=== PATIENT | female | born 2000 | race Hispanic/Latino ===

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

== ENCOUNTER 2018-01-01 15:34 | Emergency (ER) | payer BC, OTHER ==
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
--- NOTE | 2018-01-01 17:13 | CT ---
CT BRAIN 01/01/18 HISTORY: Left leg numbness. Noncontrast enhanced CT images of the brain is obtained on 01/01/18. Comparison made to previous exam from 12/16/17. Noncontrast enhanced CT images of the brain demonstrate a radiopaque BB in the left perizygomatic sof t tissues. The brain is unremarkable. No evidence of intracranial masses, hemorrhages, strokes or contusions see n. The ventricles are of normal size. IMPRESSION: Normal CT brain. POS: [facility]
[2018-01-01] MEDS ORDERED: Ketorolac Tromethamine 30 MG/ML VIAL ONE (17:24)
== END 2018-01-01 17:40 | disposition home or self-care (01) ==
LOC: SCSER 15:34
DX: S80.02XA Contusion of left knee, initial encounter (principal); R20.1 Hypoesthesia of skin; F41.9 Anxiety disorder, unspecified; F31.9 Bipolar disorder, unspecified; F42.9 Obsessive-compulsive disorder, unspecified; F90.9 Attention-deficit hyperactivity disorder, unspecified type; F17.210 Nicotine dependence, cigarettes, uncomplicated; W19.XXXA Unspecified fall, initial encounter
CPT/HCPCS: 70450; 96372; J1885

== ENCOUNTER 2018-01-12 17:09 | Emergency (ER) | payer BC | END 2018-01-12 17:45 | disposition home or self-care (01) | LOC: SCSER 17:09 | DX: S09.90XA Unspecified injury of head, initial encounter (principal); F41.9 Anxiety disorder, unspecified; F31.9 Bipolar disorder, unspecified; F90.9 Attention-deficit hyperactivity disorder, unspecified type; F42.9 Obsessive-compulsive disorder, unspecified; F17.210 Nicotine dependence, cigarettes, uncomplicated; Z79.899 Other long term (current) drug therapy; W22.8XXA Striking against or struck by other objects, initial encounter | CPT/HCPCS: 99283 ==

== ENCOUNTER 2018-05-02 16:50 | Emergency (ER) | payer BC ==
[2018-05-02] MEDS ORDERED: Ketorolac Tromethamine 30 MG/ML VIAL ONE (17:32)
--- NOTE | 2018-05-02 17:33 | CT ---
CT OF THE BRAIN WITHOUT CONTRAST: 05/02/18 COMPARISON: 01/01/18 HISTORY: Headache that came on yesterday in the posterior scalp and behind both eyes. TECHNIQUE: Multiple contiguous axial images were obtained in a CT of the brain without contrast. FINDINGS: The brain is normal in morphology and attenuation without focal lesions or confluent areas of infarct ion. There is no evidence of hydrocephalus, intracranial hemorrhage, or extra-axial fluid collection. The calvarium and overlying soft tissues are unremarkable. The visualized paranasal sinuses and masto id air cells are well aerated. IMPRESSION: No evidence of acute intracranial abnormality. POS: [facility]
== END 2018-05-02 17:38 | disposition home or self-care (01) ==
LOC: SCSER 16:50
DX: R51 Headache (principal); J45.909 Unspecified asthma, uncomplicated; F41.9 Anxiety disorder, unspecified; F31.9 Bipolar disorder, unspecified; F42.9 Obsessive-compulsive disorder, unspecified; F17.210 Nicotine dependence, cigarettes, uncomplicated; Z79.899 Other long term (current) drug therapy
CPT/HCPCS: 70450; 96372; J1885

== ENCOUNTER 2018-06-03 21:46 | Emergency (ER) | payer BC ==
[2018-06-03 23:55] LABS: #Basophils 0.1 thou/uL (0.0-0.2); #Eosinphils 0.3 thou/uL (0.0-0.7); #Lymphocytes 3.1 thou/uL (1.20-3.40); #Monocytes 0.7 thou/uL (0.11-0.59); #Neutrophils 5.2 thou/uL (1.40-6.50); %Basophils 1.3 % (0.0-1.0); %Lymphocytes 33.2 % (28.0-48.0); %Monocytes 7.1 % (0.0-4.0); %Neutrophils 55.3 % (31.0-61.0); Hemoglobin 11.8 g/dL (12.0-16.0); Mean Corpuscular Hemoglobin 26.9 pg (25.0-35.0); Mean Platelet Volume 6.7 fL (7.4-10.4); Platelet Count 251 thou/uL (130-400); RBC Distribution Width 13.7 % (11.5-14.5); White Blood Cell (WBC) Count 9.4 thou/uL (4.8-10.8)
[2018-06-04 00:04] LABS: BHCG - Serum Negative (NEGATIVE); Pregs Control Background? CLEAR/WHITE (CLR/WHITE); Pregs Control Bar Appear? YES (CONTROL BAR)
[2018-06-04 00:11] LABS: ALT (SGPT) 16 U/L (8-55); AST (SGOT) 20 U/L (5-30); Alkaline Phosphatase 100 U/L (40-150); Anion Gap 16 mmol/L (10-20); BUN (Urea Nitrogen) 10 mg/dL (8.4-21.0); Bilirubin, Total 0.1 mg/dL (0.2-1.2); Calc. Creatinine Clearance 0 mL/min (70-130); Calcium 9.7 mg/dL (7.8-10.44); Carbon Dioxide 23 mmol/L (22-29); Chloride 106 mmol/L (98-107); Estimated GFR-MDRD 87; Globulin 3.3 g/dL (2.4-3.5); Glucose 99 mg/dL (70-105); Lipase 21 U/L (8-78); Potassium 4.5 mmol/L (3.5-5.1); Protein, Total 7.3 g/dL (6.0-8.3); Sodium 140 mmol/L (136-145)
[2018-06-04 00:39] LABS: Bilirubin Negative (Negative); Blood, Urine Trace (Negative); Clarity Slightly Cloudy (Clear); Glucose, Urine (Dipstick) Negative (Negative); Leukocyte Negative (Negative); Nitrite Negative (Negative); Protein, Urine (Dipstick) Negative (Neg-Trace); Urobilinogen 0.2 mg/dL (0.2-1.0); pH, Urine 8.5 (5.0-9.0)
[2018-06-04 00:40] LABS: Bacteria/HPF 2+ HPF (None Seen); Hyaline Casts/LPF NONE SEEN LPF (0-3 Hyaline); RBC/HPF 0-3 HPF (0-3); WBC/HPF 0-3 HPF (0-3)
[2018-06-04] MEDS ORDERED: Promethazine HCl 25 MG/ML VIAL ONE (00:46)
--- NOTE | 2018-06-04 08:28 | CT ---
PRELIMINARY REPORT/[facility]/EMERGENTY AFTER-HOURS PROCEDURE CT Abdomen and Pelvis Without Intravenous Contrast CLINICAL HISTORY: 17 years old, female; Pain; Abdominal pain; Localized; Right lower quadrant (rlq); Patient HX: Report nausea/diarrhea were first symlptoms onset 2 days ago. Then dull ache at umbilicus later that day. P t denies vomiting, fever. Pt reports urine frequency but no other urine symptoms. Pain is "sharp". Pt denies vag bleeding or discharge. Pt reports pain then moved to rlq that evening, constant there x 2 days but waxes and wanes. Lying down supine makes it better. Being upright makes it worse TECHNIQUE: Axial computed tomography images of the abdomen and pelvis without intravenous contrast. All CT scans at this facility use at least one of these dose optimization techniques: automated exposure control; mA and/or kV adjustment per patient size (includes targeted exams where dose is matched to clinical indication); or iterative reconstruction. Coronal reformatted images were created and reviewed. COMPARISON: No relevant prior studies available. FINDINGS: Lung bases: No acute findings. No mass. No consolidation. ABDOMEN: Liver: No acute findings. No mass. Gallbladder and bile ducts: The gallbladder is contracted. No biliary dilation. Pancreas: No ductal dilation. No mass. Spleen: No acute findings. No mass. Adrenals: No mass. Kidneys and ureters: Few punctate left upper kidney nonobstructing calculi. Otherwise unremarkable. N o hydronephrosis. Stomach and bowel: Fecal loading. Diverticulosis. No evidence of bowel obstruction. PELVIS: Appendix: Appendix is somewhat prominent measuring up to 5-6 mm in diameter. However there isno peria ppendiceal fat stranding or fluid. No definite evidence of acute appendicitis. Bladder: The bladder is decompressed. No stones. Reproductive: No acute findings. ABDOMEN and PELVIS: Intraperitoneal space: No acute findings. No free air. No significant fluid collection. Bones/joints: No acute fracture. Soft tissues: No acute findings. Vasculature: No acute findings. No abdominal aortic aneurysm. Lymph nodes: No lymphadenopathy. IMPRESSION: No definite acute process. Few punctate nonobstructing left renal calculi. Other findings above. Recommend followup as indicated. Thank you for allowing us to participate in the care of your patient. Dictated and Authenticated by: Bryan Jc MD 06/04/2018 1:17 AM Central Time ([place]) FINAL REPORT CT ABDOMEN AND PELVIS WITHOUT CONTRAST: HISTORY: Right lower quadrant pain. COMPARISON: CT abdomen and pelvis of 11/24/2017 with contrast. FINDINGS: Findings and impression are concordant with the preliminary report. POS: [facility]
== END 2018-06-04 01:53 | disposition home or self-care (01) ==
LOC: SCSER 21:46
DX: N20.0 Calculus of kidney (principal); R11.0 Nausea; J45.909 Unspecified asthma, uncomplicated; F41.9 Anxiety disorder, unspecified; F31.9 Bipolar disorder, unspecified; F90.9 Attention-deficit hyperactivity disorder, unspecified type; F42.9 Obsessive-compulsive disorder, unspecified; F17.210 Nicotine dependence, cigarettes, uncomplicated; Z79.899 Other long term (current) drug therapy
CPT/HCPCS: 74176; 80053; 81003; 81015; 83690; 84703; 85025; 87480; 87491; 87510; 87591; 87660; 96365; 96375; J2270; J2550

== ENCOUNTER 2018-07-14 19:30 | Outpatient (CLI) | payer BC | END 2018-07-14 19:31 | disposition home or self-care (01) | LOC: SLEEPLAB 19:30 | PROVIDERS: ATTEND Pediatrics | DX: G47.33 Obstructive sleep apnea (adult) (pediatric) (principal); R53.83 Other fatigue; R06.83 Snoring; F41.9 Anxiety disorder, unspecified; F32.9 Major depressive disorder, single episode, unspecified; E66.9 Obesity, unspecified; Z68.42 Body mass index [BMI] 45.0-49.9, adult | CPT/HCPCS: 95811 ==

== ENCOUNTER 2018-10-16 01:31 | Emergency (ER) | payer BC ==
[2018-10-16 02:13] LABS: Bilirubin Negative (Negative); Blood, Urine Small (Negative); Clarity Clear (Clear); Glucose, Urine (Dipstick) Negative (Negative); Leukocyte Small (Negative); Nitrite Negative (Negative); Protein, Urine (Dipstick) Negative (Neg-Trace); Urobilinogen 0.2 mg/dL (0.2-1.0)
[2018-10-16 02:15] LABS: Pregnancy Test - Urine (BHCG) Negative (Negative); Pregu Control Background? CLEAR/WHITE (CLR/WHITE); Pregu Control Bar Appear? YES (CONTROL BAR)
[2018-10-16 02:17] LABS: Bacteria/HPF Rare-Few HPF (None Seen); Hyaline Casts/LPF 0-3 HYALINE CAST LPF (0-3 Hyaline); Squamous Epithelial 0-3 HPF (0-3)
== END 2018-10-16 02:21 | disposition home or self-care (01) ==
LOC: SCSER 01:31
DX: N30.00 Acute cystitis without hematuria (principal); J45.909 Unspecified asthma, uncomplicated; E03.9 Hypothyroidism, unspecified; F41.9 Anxiety disorder, unspecified; F32.9 Major depressive disorder, single episode, unspecified; F42.9 Obsessive-compulsive disorder, unspecified; F90.9 Attention-deficit hyperactivity disorder, unspecified type; F17.210 Nicotine dependence, cigarettes, uncomplicated; Z79.899 Other long term (current) drug therapy; Z79.51 Long term (current) use of inhaled steroids
CPT/HCPCS: 81003; 81015; 81025; 87086; 99281

== ENCOUNTER 2018-11-01 23:57 | Emergency (ER) | payer BC ==
[2018-11-02] MEDS ORDERED: Ketorolac Tromethamine 30 MG/ML VIAL ONE (00:05)
[2018-11-02 00:29] LABS: Bilirubin Negative (Negative); Blood, Urine Trace (Negative); Clarity Cloudy (Clear); Glucose, Urine (Dipstick) Negative (Negative); Leukocyte Negative (Negative); Nitrite Negative (Negative); Protein, Urine (Dipstick) Negative (Neg-Trace); Specific Gravity, Urine 1.015 (1.005-1.030); Urobilinogen 0.2 mg/dL (0.2-1.0); pH, Urine 7.5 (5.0-9.0)
[2018-11-02 00:30] LABS: Bacteria/HPF 2+ HPF (None Seen); Crystals/HPF 2+ AMORPH PHOS HPF (Negative); Hyaline Casts/LPF NONE SEEN LPF (0-3 Hyaline); RBC/HPF 0-3 HPF (0-3); Squamous Epithelial 0-3 HPF (0-3); WBC/HPF 0-3 HPF (0-3)
[2018-11-02 00:31] LABS: Pregnancy Test - Urine (BHCG) Negative (Negative); Pregu Control Background? CLEAR/WHITE (CLR/WHITE); Pregu Control Bar Appear? YES (CONTROL BAR); Specific Gravity 1.015 (1.002-1.036)
== END 2018-11-02 00:48 | disposition home or self-care (01) ==
LOC: SCSER 23:57
DX: R30.0 Dysuria (principal); E03.9 Hypothyroidism, unspecified; F42.9 Obsessive-compulsive disorder, unspecified; F90.9 Attention-deficit hyperactivity disorder, unspecified type; F17.210 Nicotine dependence, cigarettes, uncomplicated; F41.9 Anxiety disorder, unspecified; J45.909 Unspecified asthma, uncomplicated; F31.9 Bipolar disorder, unspecified; Z79.899 Other long term (current) drug therapy; Z79.51 Long term (current) use of inhaled steroids
CPT/HCPCS: 81003; 81015; 81025; 87086; 96372; J1885

== ENCOUNTER 2019-02-06 23:20 | Inpatient (IN) | payer BC ==
[2019-02-06] MEDS ORDERED: Ketorolac Tromethamine 30 MG/ML VIAL ONE (23:46)
[2019-02-07] MEDS ORDERED: Acetaminophen 500 MG TAB ONE (00:36)
[2019-02-07 00:41] LABS: BHCG - Serum Negative (NEGATIVE); Pregs Control Background? CLEAR/WHITE (CLR/WHITE); Pregs Control Bar Appear? YES (CONTROL BAR)
[2019-02-07 00:46] LABS: Anion Gap 17 mmol/L (10-20); BUN (Urea Nitrogen) 15 mg/dL (7.0-18.7); CRP (Inflammatory) 2.43 mg/dL (= or < 0.5); Calc. Creatinine Clearance 0 mL/min (70-130); Calcium 9.1 mg/dL (7.8-10.44); Carbon Dioxide 24 mmol/L (22-29); Chloride 101 mmol/L (98-107); Estimated GFR-MDRD 63; Glucose 114 mg/dL (70-105); Potassium 3.9 mmol/L (3.5-5.1); Sodium 138 mmol/L (136-145)
[2019-02-07 00:48] LABS: Eosinophils 2 % (0-10); Hemoglobin 12.9 g/dL (12.0-16.0); Lymphocytes 23 % (28-48); MDiff Complete? YES; Mean Corpuscular HGB CONC 33.8 g/dL (32.0-36.0); Mean Corpuscular Hemoglobin 28.2 pg (25.0-35.0); Mean Corpuscular Volume 83.6 fL (78.0-98.0); Mean Platelet Volume 5.9 fL (7.4-10.4); Monocytes 5 % (0-4); Neutrophil 70 % (31-61); Platelet Count 306 thou/uL (130-400); RBC Distribution Width 14.4 % (11.5-14.5); Red Blood Cell (RBC) Count 4.57 mill/uL (4.00-5.20); White Blood Cell (WBC) Count 10.4 thou/uL (4.8-10.8)
[2019-02-07] MEDS ORDERED: Morphine 4 MG/ML VIAL ONE (01:23)
[2019-02-07] MEDS ORDERED: Ciprofloxacin Lactate/D5W 400 mg/200 ml Premix ONE (01:27)
[2019-02-07] MEDS ORDERED: Ondansetron ODT 4 MG TAB SL PRN (04:17)
[2019-02-07] MEDS ORDERED: Acetaminophen 325 MG TAB PO PRN (04:17)
[2019-02-07] MEDS ORDERED: Sodium Chloride 0.9% 1,000 ML IV SCH ×2 (04:17→04:56)
[2019-02-07] MEDS ORDERED: Ondansetron PF 4 MG/2 ML Vial IVP PRN (04:17)
[2019-02-07] MEDS ORDERED: PROVENTIL INHALER 6.7 G (200 INHALATIONS) INH PRN (04:59)
[2019-02-07] MEDS ORDERED: hydrOXYzine 25 MG TAB PO PRN (04:59)
[2019-02-07] MEDS ORDERED: Morphine 4 MG/ML VIAL SLOW IVP PRN ×2 (05:06→12:38)
[2019-02-07 05:13] VITALS: BMI 53.8
[2019-02-07] MEDS ORDERED: Acetic Acid/Hydrocor 2-1% Otic 10 ML BOT L EAR SCH (06:00)
[2019-02-07] MEDS ORDERED: Cefepime 2 GM in Sodium Chloride 0.9% 100 ML IVPB SCH (06:00)
[2019-02-07] MEDS ORDERED: Vancomycin HCl 1.75 GM in Sodium Chloride 0.9% 500 ML IVPB SCH (06:00)
[2019-02-07] MEDS: NEOMYCIN-POLYMYXIN-HC EAR SUSP 200 DROP/10 ML BOT L EAR SCH ×2 (06:24→12:14)
--- NOTE | 2019-02-07 07:31 | HP ---
PRIMARY CARE DOCTOR: The primary care doctor for this patient was not reported. CODE STATUS: Full code. TIME OF EVALUATION: 5:06 a.m. CHIEF COMPLAINT: Left ear pain. HISTORY OF PRESENT ILLNESS: The is a 18-year-old female patient, past medical history of hypertension, anemia, obesity, and hypothyroidism, came to the hospital after having severe left ear pain radiating to the jaw that started around 11:00 a.m. with no clear triggers, no alleviating factors. The only problem patient recently was having an upper respiratory infection and she also reported associated left-sided ear drainage. She reported multiple recurrent ear infections and this was associated with severe pain. She also reported low-grade subjective fever. Symptoms were severe. REVIEW OF SYSTEMS: CONSTITUTIONAL: Patient has subjective fever. No chills or generalized weakness. RESPIRATORY: No cough, sputum production, or shortness of breath. CARDIOVASCULAR: No chest pain or palpitation. GASTROINTESTINAL: No nausea, vomiting, diarrhea, or abdominal pain. UNDERPRESSER HAND: No dizziness, headache, or feeling lightheaded. HEENT: Patient has left ear pain as described in HPI. GENITOURINARY: No burning on urination. EXTREMITIES: No leg swelling. All other systems were reviewed and negative, except for the findings mentioned above. PAST MEDICAL HISTORY: Positive for asthma, hypothyroidism, and chronic tachycardia. SURGICAL HISTORY: Left knee surgery x3 and tonsillectomy and adenoidectomy. PSYCHIATRIC HISTORY: Patient has a history of anxiety, bipolar disorder, depression, OCD, and ADHD. SOCIAL HISTORY: Patient has a history of no alcohol and no drugs. Patient smokes on a daily basis. FAMILY HISTORY: Includes hypertension. KNOWN ALLERGIES: Codeine and iodine. REPORTED MEDICATIONS: 1. Paroxetine. 2. Latuda. 3. Bupropion. 4. Hydroxyzine. 5. Lansoprazole. 6. Oxtellar. 7. Trazodone. 8. ProAir. PHYSICAL EXAMINATION: VITAL SIGNS: On presentation, blood pressure 123/69 with heart rate of 127, respiratory rate was 20, temperature 99, pain was 8/10, and oxygen saturation was 97% on room air. GENERAL APPEARANCE: The patient is alert, oriented, not in acute distress. HEENT: Eyes, normal conjunctivae. Moist oral mucosa. Patient has left ear that is with narrow ear canal compared with the right one and very painful to light touch. RESPIRATORY: Bilateral air entry. No rales. No wheezes. Symmetric expansion. CARDIOVASCULAR: Normal rate, regular rhythm. No murmurs. No gallop. No edema. ABDOMEN: Soft. Normal bowel sounds. MUSCULOSKELETAL: Baseline range of motion and strength. SKIN: Warm, intact. No pallor. No rash. No redness. Capillary refill seems to be intact. NEUROLOGIC: No evidence of any new focal weakness. Cranial nerves seem to be intact. PSYCH: Patient is in good mood. No anxiety. Optimal judgment. DIAGNOSTIC DATA: CT neck with contrast was done. The patient has mild acute left mastoiditis without air cells, coalescence is possible, correlate clinically. LABORATORY DATA: Labs were reviewed. Patient has white count of 10.0, hemoglobin 12.9, MCV 83.6, platelet count 306, and neutrophils 70. ESR 34. Chemistry; 138, potassium 3.9, chloride 101, carbon dioxide 24, anion gap 17, BUN 15, creatinine 1.10, GFR 63, glucose 114, and lactic acid 2. C-reactive protein 2.43. ASSESSMENT AND PLAN: The patient presented to the hospital with the following medical problems: 1. Left-sided mastoiditis seen on the CT. Patient has been started on broad-spectrum antibiotics. We will continue for now. Cultures, pain management. 2. Hyperglycemia. The patient has no diagnosis of diabetes, but she does have metabolic syndrome, we will monitor, we will treat accordingly. 3. Deep venous thrombosis prophylaxis. Job ID: [id number]
[2019-02-07] MEDS: Bupropion 150 MG SR TAB PO SCH (07:53)
[2019-02-07] MEDS: PARoxetine 20 MG TAB PO SCH (07:53)
[2019-02-07] MEDS: Morphine 2 MG/ML SYRINGE SLOW IVP PRN ×3 (07:54→12:03)
[2019-02-07] MEDS: Enoxaparin Sodium 40 MG/0.4 ML SYRINGE SC SCH (07:54)
--- NOTE | 2019-02-07 07:56 | CT ---
PRELIMINARY REPORT/[facility]/AFTER HOURS PROCEDURE EXAM: CT Neck With Contrast EXAM DATE/TIME: 02/07/2019 12:33 AM CLINICAL HISTORY: 18 years old, female; Other: Left ear pain; Patient HX: Left ear drainage and pain, radiates into jaw . Eval for mastoiditis/abscess TECHNIQUE: Imaging protocol: Axial computed tomography images of the neck with intravenous contrast. Coronal and sagittal reformatted images were created and reviewed. Radiation optimization: All CT scans at this facility use at least one of these dose optimization techniques: automated exposure control; mA and/or kV adjustment per patient size (includes targeted exams where dose is matched to clinical indication); or iterative reconstruction. Contrast material: [id number]; Contrast volume: 100 ml; Contrast route: IV; COMPARISON: No relevant prior studies available. FINDINGS: Nasopharynx: Normal. Oropharynx: Normal. No significant tonsillar enlargement. Hypopharynx: Normal. Larynx: Normal. Normal epiglottis. Retropharyngeal space: Normal. Submandibular/Parotid glands: Normal. Glands are normal in size. Thyroid: Normal. No enlarged or calcified nodules. Lymph nodes: Normal. No lymphadenopathy. Trachea: Visualized trachea is unremarkable. Lungs: Normal as visualized. Vasculature: No acute findings. Mastoid air cells: There is trace fluid opacification within the bilateral inferior mastoid air cells , LEFT greater than RIGHT. No coalescence. Bones/joints: Normal. No acute fracture. Soft tissues: There is a metallic BB within the LEFT cheek. No periauricular inflammatory stranding. IMPRESSION: Mild acute LEFT mastoiditis without air cell coalescence is possible. Correlate clinically. Thank you for allowing us to participate in the care of your patient. Dictated and Authenticated by: Carroll Bailey MD 02/07/2019 2:10 AM Central Time ([place]) FINAL REPORT POST CONTRAST SOFT TISSUE NECK CT: HISTORY: Evaluate for mastoiditis or abscess. Left ear pain, radiating to the jaw. Drainage. FINDINGS: Visualized brain parenchyma is unremarkable. Bilateral ocular lenses are appropriately located. Both globes are intact. Retrobulbar fat is prese rved. Symmetric attenuation of the optic nerves and ocular rectus muscles. Mucosal prominence of the nasopharynx may be due to lymphoid hyperplasia. Left and right tonsillar p illars are unremarkable. No significant hypertrophy at the expected region of the lingual tonsils. Limited evaluation of the oral cavity due to a small amount of artifact. No masses. Midline fatty r aphe of the tongue is preserved. Epiglottis has normal caliber. Preepiglottic fat is preserved. Symmetric attenuation of the sternocleidomastoid muscles. Fatty changes of the left and right parotid gland. Symmetric attenuation. Symmetric attenuation of the submandibular glands. Unremarkable thyroid gland. Enlarged left level II lymph node, measuring 1.6 x 1.1 cm. Additional nonenlarged lymph nodes are no albino. The great vessels of the neck are patent. Adequate aeration of the paranasal sinuses with minimal disease in the left maxillary sinus. Symmetr ic and adequate aeration of bilateral mastoid air cells. Minimal opacification of the inferior aspect of the left and right mastoid air cells, essentially symmetric. There does appear to be mild asymmetric thickening and enhancement involving the external auditory canal on the left. Correlate for otitis externa. Cervical spine vertebral body height is maintained. No fracture. No significant central canal steno sis or neural foraminal narrowing. Upper mediastinum and lung apices are unremarkable. There is a metallic foreign body in the left facial soft tissues, near the level of the zygomatic arc h, measuring 0.8 cm. IMPRESSION: 1. No evidence of a soft tissue abscess. 2. No evidence of lymphadenopathy. 3. No evidence of sialoadenitis or inflammation involving either parotid/submandibular gland. 4. Symmetric aeration of the mastoid air cells with minimal opacification of both inferior mastoid a ir cells. Correlate clinically for acute infection of the mastoid air cells. 5. Mild asymmetric enhancement and thickening involving the left external auditory canal. Correlate for otitis externa. This report is essentially in agreement with the preliminary report by [facility] Code QA CODE T
[2019-02-07] MEDS ORDERED: Guanfacine Hcl [Guanfacine Hcl Er] 1 MG PO SCH (09:00)
[2019-02-07] MEDS ORDERED: Lisdexamfetamine Dimesylate [Vyvanse] 60 MG PO SCH (09:00)
[2019-02-07] MEDS ORDERED: NORGESTIMATE ETHINYL ESTRADIOL PO SCH (09:00)
[2019-02-07] MEDS: Ketorolac Tromethamine 30 MG/ML VIAL IVP PRN (09:05)
[2019-02-07] MEDS ORDERED: cloNIDine 0.1 MG TAB PO PRN (09:28)
[2019-02-07] MEDS ORDERED: Iopamidol 300 61% 100 ML VIAL FS ONE (10:15)
[2019-02-07] MEDS ORDERED: Ciprofloxacin HCL/Dexameth Otic Drops 7.5 ml Bottle EA EAR SCH (12:00)
[2019-02-07] MEDS: Morphine 4 MG/ML VIAL SLOW IVP PRN ×2 (13:32→17:21)
[2019-02-07] MEDS: Acetaminophen 325 MG TAB PO SCH ×2 (14:38→20:18)
[2019-02-07] MEDS ORDERED: Gabapentin 100 MG CAP PO SCH (15:00)
[2019-02-07] MEDS: traMADol HCl 50 MG TAB PO PRN (15:45)
[2019-02-07] MEDS ORDERED: Acyclovir 400 mg Tablet PO SCH (16:45)
[2019-02-07] MEDS: Gabapentin 300 MG CAP PO SCH (20:18)
[2019-02-07] MEDS: Carvedilol 25 MG TAB PO SCH (20:18)
[2019-02-07] MEDS: Acyclovir 400 mg Tablet PO SCH (20:18)
[2019-02-07] MEDS: traZODone HCl 50 MG TAB PO SCH (20:18)
[2019-02-07] MEDS: Ciprofloxacin HCL/Dexameth Otic Drops 7.5 ml Bottle EA EAR SCH (20:18)
[2019-02-07] MEDS: HYDROcodone/Acetaminophen 5/325 mg Tablet PO PRN (20:21)
[2019-02-07] MEDS ORDERED: OXCARBAZEPINE 1800 MG PO SCH (21:00)
--- NOTE | 2019-02-07 22:43 | CON ---
DATE OF CONSULTATION: 02/07/2019 SUBJECTIVE: The patient is admitted to the hospital for severe left-sided ear pain. CT scan was performed and there were concerns for a possible left-sided mastoiditis. The patient has been receiving IV antibiotics and IV pain medication since being admitted with very minimal relief. ENT was called for consult. OBJECTIVE: The patient is well developed, well nourished. Her vital signs are stable. Currently, she states that her left ear has been anywhere from [id number] pain. She has a heating pad that she is using currently. PHYSICAL EXAMINATION: Shows no nasal abnormalities. No evidence of tooth erosion that could be contributing to some of the ear pain. Throat is normal. Right ear exam, there is no pain with mobilization, no pain with tracheal palpation. Ear canal is normal. Tympanic membrane was visualized. There is no evidence of redness or swelling. Left ear examination revealed tenderness throughout with any kind of mobilization including tragal palpation. Examination of the ear canal revealed some mild narrowing and redness, however, tympanic membrane was completely normal. Mild tenderness to palpation of the mastoid itself. CT scan that was taken was reviewed by Dr. Sanderson prior to examination by myself at the hospital itself. His interpretation was there is a minimal inferior mastoid proliferation at the left side that felt it was more of an incidental finding than a true mastoiditis. ASSESSMENT: 1. Otalgia. 2. Possible otitis externa. 3. Possible temporomandibular joint dysfunction with inflammation. PLAN: 1. Change current ear drop from Cortisporin to Ciprodex to use 4 drops b.i.d. 2. Continue with IV therapy as indicated by Medicine and current pain regimen. 3. May follow up on an outpatient basis with Ear, Nose, and Throat if pain continues. Job ID: [id number]
[2019-02-08] MEDS: HYDROcodone/Acetaminophen 5/325 mg Tablet PO PRN ×3 (03:09→16:54)
[2019-02-08 04:12] LABS: #Eosinphils 0.5 thou/uL (0.0-0.7); #Lymphocytes 1.8 thou/uL (1.20-3.40); #Neutrophils 7.2 thou/uL (1.40-6.50); %Basophils 0.3 % (0.0-1.0); %Eosinophils 4.7 % (0.0-10.0); %Lymphocytes 16.9 % (28.0-48.0); %Monocytes 9.4 % (0.0-4.0); %Neutrophils 68.7 % (31.0-61.0); Hemoglobin 12.2 g/dL (12.0-16.0); Mean Corpuscular HGB CONC 32.9 g/dL (32.0-36.0); Mean Corpuscular Hemoglobin 27.8 pg (25.0-35.0); Mean Corpuscular Volume 84.5 fL (78.0-98.0); Mean Platelet Volume 6.6 fL (7.4-10.4); Platelet Count 256 thou/uL (130-400); RBC Distribution Width 13.7 % (11.5-14.5); Red Blood Cell (RBC) Count 4.38 mill/uL (4.00-5.20); White Blood Cell (WBC) Count 10.5 thou/uL (4.8-10.8)
[2019-02-08 04:27] LABS: Anion Gap 13 mmol/L (10-20); BUN (Urea Nitrogen) 8 mg/dL (7.0-18.7); Calc. Creatinine Clearance 268 mL/min (70-130); Calcium 9.5 mg/dL (7.8-10.44); Carbon Dioxide 23 mmol/L (22-29); Chloride 103 mmol/L (98-107); Estimated GFR-MDRD Greater than 90; Glucose 106 mg/dL (70-105); Sodium 135 mmol/L (136-145)
[2019-02-08] MEDS: Morphine 4 MG/ML VIAL SLOW IVP PRN (06:27)
[2019-02-08] MEDS: Ciprofloxacin HCL/Dexameth Otic Drops 7.5 ml Bottle EA EAR SCH ×2 (09:21→20:44)
[2019-02-08] MEDS: Enoxaparin Sodium 40 MG/0.4 ML SYRINGE SC SCH (09:21)
[2019-02-08] MEDS: Acyclovir 400 mg Tablet PO SCH ×2 (09:22→14:30)
[2019-02-08] MEDS: PARoxetine 20 MG TAB PO SCH (09:22)
[2019-02-08] MEDS: Acetaminophen 325 MG TAB PO SCH ×3 (09:22→20:42)
[2019-02-08] MEDS: Bupropion 150 MG SR TAB PO SCH (09:22)
[2019-02-08] MEDS: Carvedilol 25 MG TAB PO SCH ×2 (09:23→20:42)
[2019-02-08] MEDS: Saccharomyces boulardii 250 MG CAP PO SCH (09:23)
[2019-02-08] MEDS: Gabapentin 300 MG CAP PO SCH ×3 (09:23→20:41)
[2019-02-08] MEDS: Ketorolac Tromethamine 30 MG/ML VIAL IVP PRN ×2 (09:34→16:55)
[2019-02-08] MEDS ORDERED: Polyethylene Glycol 3350 17 GM Packet PO PRN (11:28)
[2019-02-08] MEDS: traMADol HCl 50 MG TAB PO PRN ×2 (12:34→20:42)
[2019-02-08] MEDS ORDERED: Sodium Chloride 0.9% 1,000 ML IV SCH (17:45)
--- NOTE | 2019-02-08 18:38 | CON ---
DATE OF CONSULTATION: 02/08/2019 REASON FOR CONSULTATION: Pain left ear. HISTORY OF PRESENT ILLNESS: A 18-year-old, history of obesity, asthma, who developed fairly sudden onset of pain in the left external ear canal with radiation in the pre-auricular region. Apparently had some upper respiratory symptoms. She also used a Q-tip, because she felt as if there was ear drainage on the left side. She was seen by ENT here and they prescribed topical ear drops. The pain is better now, but she is under analgesia. No headaches. No visual symptoms, sore throat, odynophagia, or dysphagia. No cough, sputum production, or chest pain. No abdominal pain or diarrhea. No genitourinary symptoms. No neurological symptoms. MEDICAL HISTORY: Asthma, hypothyroidism, and ear infections. PAST SURGICAL HISTORY: Knee arthroscopy, tonsillectomy. SOCIAL HISTORY: Positive smoking. No drug use. FAMILY HISTORY: Hypertension. ALLERGIES: CODEINE, IODINE. MEDICATIONS: Current medications; 1. [place]. 2. Proventil. 3. Wellbutrin. 4. Coreg. 5. Ciprodex Otic drops. 6. Catapres. 7. Lovenox. 8. Zofran. 9. Guaifenesin. 10. P.r.n. medications. 11. Trazodone. PHYSICAL EXAMINATION: VITAL SIGNS: Have been normal. SKIN: Normal. No lymphadenopathy. HEENT: Left ear canal is swollen and mildly erythematous, but without any evidence of other inflammatory changes. Marked tenderness on insertion of the speculum of the otoscope. The right side is normal and widely patent. There is mild tenderness in the left mastoid. Ocular movements conjugate. Oral cavity normal. NECK: Supple. LUNGS: Symmetric clear breath sounds. HEART: S1 and S2 regular rate. ABDOMEN: Soft. Not distended or tender. MUSCULOSKELETAL: No joint inflammatory activity. Moves extremities equally. Cognitive function appears to be intact. LABORATORY DATA: With normal white cell count, hemoglobin and platelets. Differential with 70% neutrophils. Sodium 138, creatinine 1.10, glucose 114, CRP 2.43. The patient had a soft tissue neck CT with aeration of mastoid air cells with minimal opacification on the left side and there is enhancement and thickening of the left external auditory canal. ASSESSMENT: 1. Ear pain, external ear canal. 2. Swelling of the ear canal with mild erythema and x-ray changes. DISCUSSION: The most likely scenario is external otitis since she does not have diabetes in view of the clinical findings, malignant external otitis is less likely. Continue otic drops. Discontinue acyclovir. Herpes zoster in the distribution of the geniculate ganglion is also not likely. Job ID: [id number]
[2019-02-08] MEDS: Senokot S 8.6-50 MG TAB PO SCH (20:41)
[2019-02-08] MEDS: traZODone HCl 50 MG TAB PO SCH (20:44)
--- NOTE | 2019-02-08 21:16 | PDOC.PN ---
- Subjective Encounter Start Date: 02/08/19 Encounter Start Time: 08:00 Patient seen and examined fot Otalgia. Pain somewhat improving with Gabapentin. No fever/chills/ No ear discharge. No new complaints. No overnight events - Objective Resuscitation Status - Order Detail: 02/07/19 04:57 Resuscitation Status Routine Resuscitation Status: FULL: Full Resuscitation MAR Reviewed: Yes Vital Signs & Weight: Vital Signs (12 hours) Temp Pulse Resp BP Pulse Ox 02/08/19 19:50 97.4 F L 89 12 132/83 98 02/08/19 15:50 97.6 F 82 18 144/92 H 97 02/08/19 12:00 98.2 F 79 18 113/70 98 Weight Weight 313 lb I&O: 02/07/19 02/08/19 02/09/19 06:59 06:59 06:59 Intake Total 240 2460 700 Balance 240 2460 700 Result Diagrams: 02/08/19 04:01 02/08/19 04:01 Radiology Reviewed by me: Yes (CT - reviewed - no acute findings) Phys Exam - Physical Examination Constitutional: NAD HEENT: moist MMs, sclera anicteric, TM's clear, oral pharynx no lesions Respiratory: no wheezing, no rales, no rhonchi, clear to auscultation bilateral Cardiovascular: RRR, no rub no heaves/pulsations Gastrointestinal: soft, non-tender, no distention, positive bowel sounds Musculoskeletal: no edema, pulses present Neurological: non-focal, normal sensation, moves all 4 limbs Psychiatric: normal affect, A&O x 3 Skin: no rash Dx/Plan - Plan IMPRESSION: Otitis externa Otalgia due to #1 ?Herpes zoster vs HSV infection Morbid obesity BMI 53.7 HTN PLAN: Cont Acyclovir Cont other meds as below Increase Gabapentin to 300 mg TID Cont PRN pain meds Minimize IV Morphine Await ID input Review of Systems - Review of Systems Respiratory: negative: Cough, Dry, Shortness of Breath, Hemoptysis, SOB with Excertion, Pleuritic Pain, Sputum, Wheezing Cardiovascular: negative: chest pain, palpitations, orthopnea, paroxysmal nocturnal dyspnea, edema, light headedness, other - Medications/Allergies Allergies/Adverse Reactions: Allergies Allergy/AdvReac Type Severity Reaction Status Date / Time codeine Allergy Verified 02/07/19 05:02 Medications: Current Medications Acetaminophen (Tylenol) 650 mg PO TID [facility] Last Admin: 02/08/19 20:42 Dose: 650 mg Hydrocodone Bitart/Acetaminophen ([place] 5/325) 1 tab PO Q6H PRN PRN Reason: Moderate Pain (4-6) Last Admin: 02/08/19 16:54 Dose: 1 tab Albuterol Sulfate (Proventil Hfa) 2 puff INH Q4HR PRN PRN Reason: SOB &/or Wheezing Bupropion HCl (Wellbutrin Sr) 150 mg PO DAILY [facility] Last Admin: 02/08/19 09:22 Dose: 150 mg Carvedilol (Coreg) 25 mg PO BID [facility] Last Admin: 02/08/19 20:42 Dose: 25 mg Ciprofloxacin/Dexamethasone (Ciprodex 0.3-0.1% Otic Drops) 4 drop EA EAR BID [facility] Last Admin: 02/08/19 20:44 Dose: 4 drop Clonidine (Catapres) 0.1 mg PO Q4H PRN PRN Reason: SBP Greater Than 180 Enoxaparin Sodium (Lovenox) 40 mg SC 0900 [facility] Last Admin: 02/08/19 09:21 Dose: 40 mg Gabapentin (Neurontin) 300 mg PO TID [facility] Last Admin: 02/08/19 20:41 Dose: 300 mg Hydroxyzine HCl (Atarax) 25 mg PO TID PRN PRN Reason: Anxiety Ketorolac Tromethamine (Toradol) 15 mg IVP TID PRN PRN Reason: Pain Stop: 02/12/19 04:19 Last Admin: 02/08/19 16:55 Dose: 15 mg Ondansetron HCl (Zofran) 4 mg IVP Q6H PRN PRN Reason: Nausea/Vomiting Stop: 02/11/19 14:40 Ondansetron HCl (Zofran Odt) 4 mg SL Q6H PRN PRN Reason: Nausea/Vomiting Stop: 02/10/19 14:40 Pantoprazole Sodium (Protonix) 40 mg PO HS [facility] Last Admin: 02/08/19 20:42 Dose: 40 mg Paroxetine HCl (Paxil) 40 mg PO DAILY [facility] Last Admin: 02/08/19 09:22 Dose: 40 mg Guanfacine Hcl [ Guanfacine Hcl Er] 1 Mg 1 each PO DAILY [facility] Lisdexamfetamine Dimesylate [Vyvanse] 60 Mg 1 each PO QAM [facility] Lurasidone Hcl 60 Mg (Tablet) 60 each PO QPM-WM [facility] Non-Formulary Item 1 Each (Norgestimate -Ethinyl Estradiol [ Femynor 28 Tablet ] 1 Ea 1 Each 1 each PO DAILY [facility] Oxcarbazepine [ Oxtellar Xr] 1,800 Mg 1,800 each PO HS [facility] Polyethylene Glycol (Miralax) 17 gm PO DAILY PRN PRN Reason: Constipation Saccharomyces Boulardii (Florastor) 250 mg PO DAILY [facility] Last Admin: 02/08/19 09:23 Dose: 250 mg Senna/Docusate Sodium (Senokot S) 2 tab PO BID [facility] Last Admin: 02/08/19 20:41 Dose: 2 tab Sodium Chloride (Flush - Normal Saline) 10 ml IVF PRN PRN PRN Reason: Saline Flush Stop: 02/12/19 14:40 Last Admin: 02/08/19 14:34 Dose: 10 ml Tramadol HCl (Ultram) 50 mg PO Q4H PRN PRN Reason: Moderate Pain (4-6) Last Admin: 02/08/19 20:42 Dose: 50 mg Trazodone HCl (Desyrel) 50 mg PO HS [facility] Last Admin: 02/08/19 20:44 Dose: 50 mg
[2019-02-09] MEDS: HYDROcodone/Acetaminophen 5/325 mg Tablet PO PRN ×2 (03:12→08:25)
[2019-02-09] MEDS: Ciprofloxacin HCL/Dexameth Otic Drops 7.5 ml Bottle EA EAR SCH ×2 (08:16→21:12)
[2019-02-09] MEDS: Enoxaparin Sodium 40 MG/0.4 ML SYRINGE SC SCH (08:16)
[2019-02-09] MEDS: Saccharomyces boulardii 250 MG CAP PO SCH (08:17)
[2019-02-09] MEDS: Senokot S 8.6-50 MG TAB PO SCH ×2 (08:17→21:12)
[2019-02-09] MEDS: PARoxetine 20 MG TAB PO SCH (08:17)
[2019-02-09] MEDS: Acetaminophen 325 MG TAB PO SCH (08:18)
[2019-02-09] MEDS: Carvedilol 25 MG TAB PO SCH ×2 (08:18→21:13)
[2019-02-09] MEDS: Bupropion 150 MG SR TAB PO SCH (08:18)
[2019-02-09] MEDS: Gabapentin 300 MG CAP PO SCH ×4 (08:20→21:13)
[2019-02-09] MEDS ORDERED: Acetaminophen 325 MG TAB PO PRN (10:47)
[2019-02-09] MEDS: traMADol HCl 50 MG TAB PO PRN (15:06)
[2019-02-09] MEDS: Piperacillin/Tazobactam 3.375 GM in Sodium Chloride 0.9% 100 ML IVPB SCH ×2 (15:07→21:12)
[2019-02-09] MEDS: Ketorolac Tromethamine 30 MG/ML VIAL IVP PRN (15:15)
--- NOTE | 2019-02-09 16:13 | PRG ---
DATE OF SERVICE: 02/09/2019 SUBJECTIVE: Still marked pain without improvement in left ear and preauricular areas. No sore throat. No cough or sputum production. No chest pain. No abdominal pain or diarrhea. Bowel sounds are normal. Ocular movements conjugate. Less swelling of the left external ear canal. I did not see any erythema. The preauricular tissues are markedly tender including the mastoid and retroauricular or preauricular regions. OBJECTIVE: LUNGS: Clear. HEART: S1-S2. Regular rate. ABDOMEN: Soft. Not distended or tender. LABORATORY DATA: White cell count 10.5. ASSESSMENT AND DISCUSSION: Ear pain with likely external otitis. In view of lack of improvement just with topical treatment, we will add systemic antimicrobial therapy and observe until tomorrow. Hopefully, discharge on Ciprodex once there is some improvement. Job ID: [id number]
[2019-02-09] MEDS: traZODone HCl 50 MG TAB PO SCH (21:13)
--- NOTE | 2019-02-09 23:32 | PDOC.PN ---
- Subjective Encounter Start Date: 02/09/19 Encounter Start Time: 09:00 Patient seen and examined for otitis externa. Continues to have significant left ear pain - sharp, shooting. No new ear discharge. No fever. No overnight events - Objective Resuscitation Status - Order Detail: 02/07/19 04:57 Resuscitation Status Routine Resuscitation Status: FULL: Full Resuscitation MAR Reviewed: Yes Vital Signs & Weight: Vital Signs (12 hours) Temp Pulse Resp BP Pulse Ox 02/09/19 20:47 98.1 F 84 16 134/92 H 99 02/09/19 16:40 98 02/09/19 12:46 98.1 F 84 18 127/81 98 Weight Weight 313 lb I&O: 02/08/19 02/09/19 02/10/19 06:59 06:59 06:59 Intake Total 2460 1960 2980 Balance 2460 1960 2980 Result Diagrams: 02/08/19 04:01 02/08/19 04:01 Phys Exam - Physical Examination Constitutional: NAD HEENT: TM's clear some dried secretions in left ear canal. No erythema Respiratory: no wheezing, no rhonchi Cardiovascular: RRR, no rub Gastrointestinal: soft Musculoskeletal: no edema Neurological: moves all 4 limbs Dx/Plan - Plan DVT proph w/lovenox, DVT proph w/SCDs IMPRESSION: Otitis externa ? Malignant Otalgia due to #1 ?Herpes zoster vs HSV infection - Acyclovir dced by ID Morbid obesity BMI 53.7 HTN PLAN: Start Zosyn per Dr Bashir Increase Gabapentin to 300 mg QID Cont other meds as below Cont PRN pain meds Minimize narcotics Review of Systems - Review of Systems Respiratory: negative: Cough, Dry, Shortness of Breath, Hemoptysis, SOB with Excertion, Pleuritic Pain, Sputum, Wheezing Cardiovascular: negative: chest pain, palpitations, orthopnea, paroxysmal nocturnal dyspnea, edema, light headedness, other Gastrointestinal: negative: Nausea, Vomiting, Abdominal Pain, Diarrhea, Constipation, Melena, Hematochezia, Other - Medications/Allergies Allergies/Adverse Reactions: Allergies Allergy/AdvReac Type Severity Reaction Status Date / Time codeine Allergy Verified 02/07/19 05:02 Medications: Current Medications Acetaminophen (Tylenol) 650 mg PO Q4H PRN PRN Reason: Headache/Fever or Mild Pain Hydrocodone Bitart/Acetaminophen ([place] 5/325) 1 tab PO Q6H PRN PRN Reason: Moderate Pain (4-6) Last Admin: 02/09/19 08:25 Dose: 1 tab Albuterol Sulfate (Proventil Hfa) 2 puff INH Q4HR PRN PRN Reason: SOB &/or Wheezing Bupropion HCl (Wellbutrin Sr) 150 mg PO DAILY [facility] Last Admin: 02/09/19 08:18 Dose: 150 mg Carvedilol (Coreg) 25 mg PO BID [facility] Last Admin: 02/09/19 21:13 Dose: 25 mg Ciprofloxacin/Dexamethasone (Ciprodex 0.3-0.1% Otic Drops) 4 drop EA EAR BID [facility] Last Admin: 02/09/19 21:12 Dose: 4 drop Clonidine (Catapres) 0.1 mg PO Q4H PRN PRN Reason: SBP Greater Than 180 Enoxaparin Sodium (Lovenox) 40 mg SC 0900 [facility] Last Admin: 02/09/19 08:16 Dose: 40 mg Gabapentin (Neurontin) 300 mg PO QID [facility] Last Admin: 02/09/19 21:13 Dose: 300 mg Hydroxyzine HCl (Atarax) 25 mg PO TID PRN PRN Reason: Anxiety Piperacillin Sod/Tazobactam (Sod 3.375 gm/ Sodium Chloride) 100 mls @ 200 mls/ hr IVPB 0300,0900,1500,2100 [facility] Last Admin: 02/09/19 21:12 Dose: 100 mls Ketorolac Tromethamine (Toradol) 15 mg IVP TID PRN PRN Reason: Pain Stop: 02/12/19 04:19 Last Admin: 02/09/19 15:15 Dose: 15 mg Ondansetron HCl (Zofran) 4 mg IVP Q6H PRN PRN Reason: Nausea/Vomiting Stop: 02/11/19 14:40 Ondansetron HCl (Zofran Odt) 4 mg SL Q6H PRN PRN Reason: Nausea/Vomiting Stop: 02/10/19 14:40 Pantoprazole Sodium (Protonix) 40 mg PO HS [facility] Last Admin: 02/09/19 21:13 Dose: 40 mg Paroxetine HCl (Paxil) 40 mg PO DAILY [facility] Last Admin: 02/09/19 08:17 Dose: 40 mg Guanfacine Hcl [ Guanfacine Hcl Er] 1 Mg 1 each PO DAILY [facility] Lisdexamfetamine Dimesylate [Vyvanse] 60 Mg 1 each PO QAM [facility] Lurasidone Hcl 60 Mg (Tablet) 60 each PO QPM-WM [facility] Non-Formulary Item 1 Each (Norgestimate -Ethinyl Estradiol [ Femynor 28 Tablet ] 1 Ea 1 Each 1 each PO DAILY [facility] Oxcarbazepine [ Oxtellar Xr] 1,800 Mg 1,800 each PO HS [facility] Polyethylene Glycol (Miralax) 17 gm PO DAILY PRN PRN Reason: Constipation Polyethylene Glycol (Miralax) 17 gm PO DAILY [facility] Saccharomyces Boulardii (Florastor) 250 mg PO DAILY [facility] Last Admin: 02/09/19 08:17 Dose: 250 mg Senna/Docusate Sodium (Senokot S) 2 tab PO BID [facility] Last Admin: 02/09/19 21:12 Dose: 2 tab Sodium Chloride (Flush - Normal Saline) 10 ml IVF PRN PRN PRN Reason: Saline Flush Stop: 02/12/19 14:40 Last Admin: 02/09/19 08:18 Dose: 10 ml Tramadol HCl (Ultram) 50 mg PO Q4H PRN PRN Reason: Moderate Pain (4-6) Last Admin: 02/09/19 15:06 Dose: 50 mg Trazodone HCl (Desyrel) 50 mg PO HS [facility] Last Admin: 02/09/19 21:13 Dose: 50 mg
[2019-02-10] MEDS: Piperacillin/Tazobactam 3.375 GM in Sodium Chloride 0.9% 100 ML IVPB SCH ×4 (03:35→20:15)
[2019-02-10] MEDS: Ciprofloxacin HCL/Dexameth Otic Drops 7.5 ml Bottle EA EAR SCH ×2 (08:15→20:19)
[2019-02-10] MEDS: Enoxaparin Sodium 40 MG/0.4 ML SYRINGE SC SCH (08:15)
[2019-02-10] MEDS: Gabapentin 300 MG CAP PO SCH ×4 (08:16→20:22)
[2019-02-10] MEDS: Senokot S 8.6-50 MG TAB PO SCH ×2 (08:16→20:23)
[2019-02-10] MEDS: PARoxetine 20 MG TAB PO SCH (08:16)
[2019-02-10] MEDS: Bupropion 150 MG SR TAB PO SCH (08:16)
[2019-02-10] MEDS: Carvedilol 25 MG TAB PO SCH ×2 (08:16→20:22)
[2019-02-10] MEDS: Saccharomyces boulardii 250 MG CAP PO SCH (08:16)
[2019-02-10] MEDS: Polyethylene Glycol 3350 17 GM Packet PO SCH (08:17)
[2019-02-10] MEDS: Ketorolac Tromethamine 30 MG/ML VIAL IVP PRN (14:09)
--- NOTE | 2019-02-10 16:02 | PDOC.PN ---
- Subjective Encounter Start Date: 02/10/19 Encounter Start Time: 12:30 Patient seen and examined for Otitis externa. Still has intermittent left ear pain. Was evaluated by ENT yesterday. No fever/chills or new left ear discharge. No new complaints. No overnight events - Objective Resuscitation Status - Order Detail: 02/07/19 04:57 Resuscitation Status Routine Resuscitation Status: FULL: Full Resuscitation MAR Reviewed: Yes Vital Signs & Weight: Vital Signs (12 hours) Temp Pulse Resp BP Pulse Ox 02/10/19 08:00 98.0 F 94 18 131/71 96 Weight Weight 313 lb I&O: 02/09/19 02/10/19 02/11/19 06:59 06:59 06:59 Intake Total 1959 2980 Balance 1959 2980 Result Diagrams: 02/08/19 04:01 02/08/19 04:01 Phys Exam - Physical Examination Constitutional: NAD HEENT: sclera anicteric, TM's clear no new findings Respiratory: no wheezing, no rhonchi Cardiovascular: RRR, no rub Gastrointestinal: soft, non-tender, positive bowel sounds Musculoskeletal: no edema Neurological: moves all 4 limbs Dx/Plan - Plan DVT proph w/lovenox, DVT proph w/SCDs IMPRESSION: Otitis externa ? Malignant Otalgia due to #1 Morbid obesity BMI 53.7 HTN PLAN: Cont Zosyn per ID Cont Gabapentin 300 mg 4 x daily Cont other meds as below DC once cleared by ID Review of Systems - Review of Systems Respiratory: negative: Cough, Dry, Shortness of Breath, Hemoptysis, SOB with Excertion, Pleuritic Pain, Sputum, Wheezing Cardiovascular: negative: chest pain, palpitations, orthopnea, paroxysmal nocturnal dyspnea, edema, light headedness, other - Medications/Allergies Allergies/Adverse Reactions: Allergies Allergy/AdvReac Type Severity Reaction Status Date / Time codeine Allergy Verified 02/07/19 05:02 Medications: Current Medications Acetaminophen (Tylenol) 650 mg PO Q4H PRN PRN Reason: Headache/Fever or Mild Pain Hydrocodone Bitart/Acetaminophen ([place] 5/325) 1 tab PO Q6H PRN PRN Reason: Moderate Pain (4-6) Last Admin: 02/09/19 08:25 Dose: 1 tab Albuterol Sulfate (Proventil Hfa) 2 puff INH Q4HR PRN PRN Reason: SOB &/or Wheezing Bupropion HCl (Wellbutrin Sr) 150 mg PO DAILY [facility] Last Admin: 02/10/19 08:16 Dose: 150 mg Carvedilol (Coreg) 25 mg PO BID [facility] Last Admin: 02/10/19 08:16 Dose: 25 mg Ciprofloxacin/Dexamethasone (Ciprodex 0.3-0.1% Otic Drops) 4 drop EA EAR BID [facility] Last Admin: 02/10/19 08:15 Dose: 4 drop Clonidine (Catapres) 0.1 mg PO Q4H PRN PRN Reason: SBP Greater Than 180 Enoxaparin Sodium (Lovenox) 40 mg SC 0900 [facility] Last Admin: 02/10/19 08:15 Dose: 40 mg Gabapentin (Neurontin) 300 mg PO QID [facility] Last Admin: 02/10/19 14:10 Dose: 300 mg Hydroxyzine HCl (Atarax) 25 mg PO TID PRN PRN Reason: Anxiety Piperacillin Sod/Tazobactam (Sod 3.375 gm/ Sodium Chloride) 100 mls @ 200 mls/ hr IVPB 0300,0900,1500,2100 [facility] Last Admin: 02/10/19 14:10 Dose: 100 mls Ketorolac Tromethamine (Toradol) 15 mg IVP TID PRN PRN Reason: Pain Stop: 02/12/19 04:19 Last Admin: 02/10/19 14:09 Dose: 15 mg Ondansetron HCl (Zofran) 4 mg IVP Q6H PRN PRN Reason: Nausea/Vomiting Stop: 02/11/19 14:40 Pantoprazole Sodium (Protonix) 40 mg PO HS [facility] Last Admin: 02/09/19 21:13 Dose: 40 mg Paroxetine HCl (Paxil) 40 mg PO DAILY [facility] Last Admin: 02/10/19 08:16 Dose: 40 mg Guanfacine Hcl [ Guanfacine Hcl Er] 1 Mg 1 each PO DAILY [facility] Lisdexamfetamine Dimesylate [Vyvanse] 60 Mg 1 each PO QAM [facility] Lurasidone Hcl 60 Mg (Tablet) 60 each PO QPM-WM [facility] Non-Formulary Item 1 Each (Norgestimate -Ethinyl Estradiol [ Femynor 28 Tablet ] 1 Ea 1 Each 1 each PO DAILY [facility] Oxcarbazepine [ Oxtellar Xr] 1,800 Mg 1,800 each PO HS [facility] Polyethylene Glycol (Miralax) 17 gm PO DAILY PRN PRN Reason: Constipation Polyethylene Glycol (Miralax) 17 gm PO DAILY [facility] Last Admin: 02/10/19 08:17 Dose: Not Given Saccharomyces Boulardii (Florastor) 250 mg PO DAILY [facility] Last Admin: 02/10/19 08:16 Dose: 250 mg Senna/Docusate Sodium (Senokot S) 2 tab PO BID [facility] Last Admin: 02/10/19 08:16 Dose: 2 tab Sodium Chloride (Flush - Normal Saline) 10 ml IVF PRN PRN PRN Reason: Saline Flush Stop: 02/12/19 14:40 Last Admin: 02/10/19 08:17 Dose: 10 ml Tramadol HCl (Ultram) 50 mg PO Q4H PRN PRN Reason: Moderate Pain (4-6) Last Admin: 02/09/19 15:06 Dose: 50 mg Trazodone HCl (Desyrel) 50 mg PO [facility] Last Admin: 02/09/19 21:13 Dose: 50 mg
[2019-02-10] MEDS: HYDROcodone/Acetaminophen 5/325 mg Tablet PO PRN (16:38)
[2019-02-10] MEDS: traZODone HCl 50 MG TAB PO SCH (20:23)
[2019-02-10] MEDS ORDERED: HYDROcodone/Acetaminophen 5/325 mg Tablet PO SCH (23:00)
[2019-02-11] MEDS: Piperacillin/Tazobactam 3.375 GM in Sodium Chloride 0.9% 100 ML IVPB SCH ×3 (04:28→13:49)
[2019-02-11] MEDS: HYDROcodone/Acetaminophen 5/325 mg Tablet PO PRN ×3 (05:19→16:25)
[2019-02-11 07:26] LABS: #Eosinphils 0.5 thou/uL (0.0-0.7); #Lymphocytes 2.4 thou/uL (1.20-3.40); #Monocytes 0.6 thou/uL (0.11-0.59); #Neutrophils 4.6 thou/uL (1.40-6.50); %Basophils 0.1 % (0.0-1.0); %Eosinophils 6.1 % (0.0-10.0); %Lymphocytes 29.9 % (28.0-48.0); %Monocytes 6.9 % (0.0-4.0); Hemoglobin 11.7 g/dL (12.0-16.0); Mean Corpuscular HGB CONC 32.9 g/dL (32.0-36.0); Mean Corpuscular Hemoglobin 27.8 pg (25.0-35.0); Mean Corpuscular Volume 84.6 fL (78.0-98.0); Mean Platelet Volume 6.4 fL (7.4-10.4); Platelet Count 297 thou/uL (130-400); RBC Distribution Width 13.8 % (11.5-14.5); Red Blood Cell (RBC) Count 4.21 mill/uL (4.00-5.20)
[2019-02-11 07:42] LABS: Anion Gap 13 mmol/L (10-20); BUN (Urea Nitrogen) 10 mg/dL (7.0-18.7); Calc. Creatinine Clearance 276 mL/min (70-130); Calcium 9.1 mg/dL (7.8-10.44); Carbon Dioxide 21 mmol/L (22-29); Chloride 108 mmol/L (98-107); Estimated GFR-MDRD Greater than 90; Glucose 90 mg/dL (70-105); Sodium 138 mmol/L (136-145)
[2019-02-11 08:00] VITALS: BP 108/65; TEMP 97.6
[2019-02-11] MEDS: Saccharomyces boulardii 250 MG CAP PO SCH (08:33)
[2019-02-11] MEDS: Bupropion 150 MG SR TAB PO SCH (08:33)
[2019-02-11] MEDS: Senokot S 8.6-50 MG TAB PO SCH (08:33)
[2019-02-11] MEDS: Gabapentin 300 MG CAP PO SCH ×3 (08:33→16:26)
[2019-02-11] MEDS: PARoxetine 20 MG TAB PO SCH (08:33)
[2019-02-11] MEDS: Carvedilol 25 MG TAB PO SCH (08:33)
[2019-02-11] MEDS: Ciprofloxacin HCL/Dexameth Otic Drops 7.5 ml Bottle EA EAR SCH (08:34)
[2019-02-11] MEDS: Polyethylene Glycol 3350 17 GM Packet PO SCH (08:34)
[2019-02-11] MEDS: Enoxaparin Sodium 40 MG/0.4 ML SYRINGE SC SCH (08:34)
--- NOTE | 2019-02-11 16:56 | PRG ---
DATE OF SERVICE: 02/11/2019 SUBJECTIVE: Still with marked pain in the left external ear canal. No respiratory symptoms or abdominal pain or diarrhea. No headaches. No visual symptoms. OBJECTIVE: VITAL SIGNS: The vital signs are normal. HEENT: The inspection of the ear canal shows what appears to be a focal area of inflammatory change with swelling in the inferior aspect of the ear canal with mild erythema. The other ear is normal. LUNGS: Clear. CARDIAC: S1 and S2, regular rate. ABDOMEN: Soft, not distended or tender. EXTREMITIES: Moves all extremities equally. LABORATORY DATA: White cell count 8.0, hemoglobin 11.7, platelets 297. Sodium 138, creatinine 0.73. ASSESSMENT AND DISCUSSION: Likely a small little area of folliculitis or small abscess in the ear canal. We will have the patient discharged on topical antibiotic eardrops plus oral clindamycin and follow up with Dr. Sanderson in a.m. since he will have the instruments that will allow him to properly intervene in this process. Job ID: [id number]
--- NOTE | 2019-02-12 07:26 | DIS ---
DATE OF ADMISSION: 02/07/2019 DATE OF DISCHARGE: 02/11/2019 FINAL DIAGNOSES: 1. Left-sided otitis externa, suspected malignant. 2. Possible abscess in the left ear canal. 3. Otalgia secondary to #1. 4. Morbid obesity with a BMI of 53.7. 5. Hypertension. 6. Asthma. 7. Codeine allergy. 8. Anxiety. 9. Depression, mild, stable. DISCHARGE DISPOSITION: Home. FOLLOWUP: 1. Follow up with primary care physician, Dr. Simi Almendarez in 1 week. 2. Follow up with Dr. Zack Sanderson tomorrow at 8:45 a.m. ALLERGIES: THE PATIENT IS ALLERGIC TO CODEINE. DISCHARGE MEDICATIONS: 1. Clindamycin 300 mg three times a day for 1 week. 2. Florastor 250 mg daily. 3. Tramadol as needed. 4. Gabapentin 300 mg twice a day for next 10 days. 5. Ciprodex 4 drops in the left ear twice a day. All other home medications were left unchanged. The patient was seen and examined on the day of discharge. Denies any new complaints. No chest pain, shortness of breath, fever or chills reported. BRIEF HOSPITAL COURSE: The patient is a 18-year-old female with hypertension, asthma, hypothyroidism, and ear infections in the past, presented to the hospital with left ear pain. Please refer to the history and physical for further details. CT scan of the soft tissue of the neck showed findings concerning for mastoiditis on the left. Please refer to the history and physical for further details. The patient was admitted to the hospital with a diagnosis of possible left-sided mastoiditis. The patient was started on broad-spectrum antibiotics. She was evaluated by ENT. Mastoiditis was ruled out by ENT. Antibiotics were discontinued. She was started on Ciprodex ear drops for possible otitis externa. The patient had significant sharp shooting pain from the left ear that improved with gabapentin along with [place]. Due to persistent ear pain, the patient was also evaluated by ENT. There was a concern for possible malignant otitis externa. She was placed on Zosyn. Today on the day of discharge, it was noted that she has a small abscess in the left ear canal. She will follow up with Dr. Sanderson tomorrow morning at 8:45 a.m. for possible incision and drainage. Zosyn has been changed to oral clindamycin. She will continue with Ciprodex ear drops. She will wean off gabapentin gradually. PLAN: Plan of care was discussed with the patient in detail. She stated understanding. Job ID: [id number]
== END 2019-02-11 17:49 | disposition home or self-care (01) | DRG 156 ==
LOC: SCSER 23:20 → ONC 02-07 02:40 → OBSVTOIN 02-07 02:40 → INTOOBSV 02-07 09:29
PROVIDERS: ADMIT Hospitalist; ATTEND Hospitalist
DX: H60.92 Unspecified otitis externa, left ear (principal); I10 Essential (primary) hypertension; D64.9 Anemia, unspecified; E66.01 Morbid (severe) obesity due to excess calories; E03.9 Hypothyroidism, unspecified; J44.9 Chronic obstructive pulmonary disease, unspecified; F41.9 Anxiety disorder, unspecified; F31.9 Bipolar disorder, unspecified; F42.9 Obsessive-compulsive disorder, unspecified; F90.9 Attention-deficit hyperactivity disorder, unspecified type; F17.200 Nicotine dependence, unspecified, uncomplicated; E88.81 Metabolic syndrome and other insulin resistance; R73.9 Hyperglycemia, unspecified; Z79.899 Other long term (current) drug therapy; Z88.5 Allergy status to narcotic agent
CPT/HCPCS: 36415; 70491; 80048; 83605; 84703; 85025; 85652; 86140; 96361; 96365; 96372; 96375; J0692; J0744; J1650; J1885; J2270; J2543; J3370; J3490; J7050; Q9967

== ENCOUNTER 2019-02-14 21:58 | Emergency (ER) | payer BC ==
[2019-02-14] MEDS ORDERED: Ketorolac Tromethamine 30 MG/ML VIAL ONE (22:36)
[2019-02-14] MEDS ORDERED: Ondansetron PF 4 MG/2 ML Vial ONE (22:36)
[2019-02-14 22:56] LABS: Bilirubin Negative (Negative); Blood, Urine Large (Negative); Clarity Slightly Cloudy (Clear); Glucose, Urine (Dipstick) Negative (Negative); Leukocyte Negative (Negative); Nitrite Negative (Negative); Protein, Urine (Dipstick) 30 mg/dL (Neg-Trace); Urobilinogen 0.2 mg/dL (0.2-1.0)
[2019-02-14 23:03] LABS: Bacteria/HPF 1+ HPF (None Seen); RBC/HPF 21-50 HPF (0-3); WBC/HPF 0-3 HPF (0-3)
[2019-02-14 23:08] LABS: #Basophils 0.2 thou/uL (0.0-0.2); #Eosinphils 0.4 thou/uL (0.0-0.7); #Lymphocytes 2.9 thou/uL (1.20-3.40); #Monocytes 0.7 thou/uL (0.11-0.59); #Neutrophils 8.5 thou/uL (1.40-6.50); %Basophils 1.7 % (0.0-1.0); %Lymphocytes 23.1 % (28.0-48.0); %Monocytes 5.5 % (0.0-4.0); %Neutrophils 66.8 % (31.0-61.0); Hemoglobin 12.8 g/dL (12.0-16.0); Mean Corpuscular HGB CONC 32.6 g/dL (32.0-36.0); Mean Corpuscular Hemoglobin 27.2 pg (25.0-35.0); Mean Corpuscular Volume 83.5 fL (78.0-98.0); Mean Platelet Volume 5.6 fL (7.4-10.4); Platelet Count 377 thou/uL (130-400); RBC Distribution Width 14.5 % (11.5-14.5); White Blood Cell (WBC) Count 12.7 thou/uL (4.8-10.8)
[2019-02-14 23:11] LABS: BHCG - Serum Negative (NEGATIVE); Pregs Control Background? CLEAR/WHITE (CLR/WHITE); Pregs Control Bar Appear? YES (CONTROL BAR)
[2019-02-14 23:23] LABS: ALT (SGPT) 28 U/L (8-55); AST (SGOT) 31 U/L (5-34); Albumin 4.3 g/dL (3.5-5.0); Alkaline Phosphatase 81 U/L (40-150); Anion Gap 21 mmol/L (10-20); BUN (Urea Nitrogen) 12 mg/dL (7.0-18.7); Bilirubin, Total 0.1 mg/dL (0.2-1.2); Calc. Creatinine Clearance 0 mL/min (70-130); Calcium 9.8 mg/dL (7.8-10.44); Carbon Dioxide 21 mmol/L (22-29); Chloride 103 mmol/L (98-107); Estimated GFR-MDRD 79; Globulin 4.3 g/dL (2.4-3.5); Glucose 96 mg/dL (70-105); Lipase 20 U/L (8-78); Potassium 4.8 mmol/L (3.5-5.1); Protein, Total 8.6 g/dL (6.0-8.3); Sodium 140 mmol/L (136-145)
--- NOTE | 2019-02-14 23:38 | CT ---
EXAM: Abdomen and pelvic CT scan without contrast: HISTORY: Right-sided abdominal pain for 2 hours nausea COMPARISON: 06/04/2018 FINDINGS: The visualized lung bases are clear. Liver: Unremarkable. Gallbladder:Unremarkable. Pancreas:Unremarkable Spleen:Unremarkable. Adrenal glands:Unremarkable. Kidneys:Tiny bilateral renal calculi,nonobstructing,no evidence for acute obstruction.No solid or cystic mass. No evidence for bowel obstruction. No CT evidence for acute appendicitis. The urinary bladder is unremarkable. No abscess, adenopathy, or abnormal fluid collection within the abdomen or pelvis. IMPRESSION: Tiny bilateral nonobstructing renal calculi. No significant acute process. No significant change from prior exam.
[2019-02-15 00:06] LABS: Base Excess-Venous -1.8 mmol/L (-2.0 to 3.0); Bicarbonate (HCO3v) 25.2 mmol/L (22.0-28.0); CO2 Tension (PvCO2) 50.6 mmHg (40.0-50.0); Calcium, Ionized 1.15 mmol/L (See Comments:); Chloride 108 mmol/L (98-107); Potassium 3.9 mmol/L (3.5-5.1); Sodium 142 mmol/L (138-145); T. Carbon Dioxide 26.7 mmol/L (22.0-28.0); vO2 Saturation-calc 65.4 % (60.0-85.0)
[2019-02-15 00:44] LABS: Acetaminophen Less than 6.0 mcg/mL (10.0-30.0); Alcohol Less than 10 mg/dL (Less than 10); Anion Gap 18 mmol/L (10-20); BUN (Urea Nitrogen) 12 mg/dL (7.0-18.7); Calc. Creatinine Clearance 0 mL/min (70-130); Calcium 9.1 mg/dL (7.8-10.44); Carbon Dioxide 23 mmol/L (22-29); Chloride 105 mmol/L (98-107); Estimated GFR-MDRD 85; Glucose 116 mg/dL (70-105); Potassium 3.9 mmol/L (3.5-5.1); Salicylate Less than 8.0 mg/dL (15.0-30.0); Sodium 142 mmol/L (136-145)
[2019-02-15 00:45] LABS: Amphetamine Detected (NotDetected); Barbiturates Screen Not Detected (NotDetected); Benzodiazepine Screen Not Detected (NotDetected); Cocaine Metabolite Screen Not Detected (NotDetected); Medtox Control Line Valid? VALID (VALID); Methadone Not Detected (NotDetected); Methamphetamine Not Detected (NotDetected); Opiate Screen Not Detected (NotDetected); Oxycodone Screen Not Detected (NotDetected); Phencyclidine (PCP) Not Detected (NotDetected); THC/Cannabinoid Screen Not Detected (NotDetected); Tricyclic Screen Not Detected (NotDetected)
== END 2019-02-15 02:09 | disposition home or self-care (01) ==
LOC: SCSER 21:58
DX: E86.0 Dehydration (principal); R10.9 Unspecified abdominal pain; R11.0 Nausea; J45.909 Unspecified asthma, uncomplicated; E03.9 Hypothyroidism, unspecified; F31.9 Bipolar disorder, unspecified; F41.9 Anxiety disorder, unspecified; F90.9 Attention-deficit hyperactivity disorder, unspecified type; F42.9 Obsessive-compulsive disorder, unspecified; Z79.899 Other long term (current) drug therapy
CPT/HCPCS: 36415; 74176; 80048; 80053; 80306; 80307; 81003; 81015; 82330; 82803; 83605; 83690; 84703; 85025; 87086; 96361; 96374; 96375; J1885; J2405

== ENCOUNTER 2019-03-13 13:47 | Emergency (ER) | payer BC ==
[2019-03-13 14:47] LABS: Bilirubin Negative (Negative); Blood, Urine Small (Negative); Clarity Clear (Clear); Glucose, Urine (Dipstick) Negative (Negative); Leukocyte Negative (Negative); Nitrite Negative (Negative); Protein, Urine (Dipstick) Negative (Neg-Trace); Urobilinogen 0.2 mg/dL (Less than 2)
[2019-03-13 15:00] LABS: Bacteria/HPF 1+ HPF (None Seen); RBC/HPF 0-3 HPF (0-3); Squamous Epithelial 21-50 HPF (0-3); WBC/HPF None Seen HPF (0-3)
[2019-03-13] MEDS ORDERED: Ketorolac Tromethamine 60 MG/2 ML VIAL ONE (15:44)
== END 2019-03-13 15:53 | disposition home or self-care (01) ==
LOC: SCSER 13:47
DX: G89.29 Other chronic pain (principal); R07.81 Pleurodynia; M54.9 Dorsalgia, unspecified; E03.9 Hypothyroidism, unspecified; F90.9 Attention-deficit hyperactivity disorder, unspecified type; F31.9 Bipolar disorder, unspecified; F41.9 Anxiety disorder, unspecified; F42.9 Obsessive-compulsive disorder, unspecified; F17.210 Nicotine dependence, cigarettes, uncomplicated; Z79.899 Other long term (current) drug therapy
CPT/HCPCS: 81003; 81015; 96372; 99284; J1885

== ENCOUNTER 2019-06-08 19:42 | Emergency (ER) | payer BC ==
[2019-06-08 20:24] LABS: #Basophils 0.1 thou/uL (0.0-0.2); #Eosinphils 0.4 thou/uL (0.0-0.7); #Lymphocytes 2.8 thou/uL (1.20-3.40); #Monocytes 0.5 thou/uL (0.11-0.59); #Neutrophils 6.2 thou/uL (1.40-6.50); %Basophils 0.8 % (0.0-1.0); %Eosinophils 3.5 % (0.0-10.0); %Lymphocytes 28.4 % (28.0-48.0); %Monocytes 4.8 % (0.0-4.0); %Neutrophils 62.5 % (31.0-61.0); Hemoglobin 12.5 g/dL (12.0-16.0); Mean Corpuscular HGB CONC 32.3 g/dL (32.0-36.0); Mean Corpuscular Hemoglobin 27.6 pg (25.0-35.0); Mean Corpuscular Volume 85.5 fL (78.0-98.0); Mean Platelet Volume 6.3 fL (7.4-10.4); Platelet Count 324 thou/uL (130-400); RBC Distribution Width 14.9 % (11.5-14.5); Red Blood Cell (RBC) Count 4.52 mill/uL (4.00-5.20); White Blood Cell (WBC) Count 9.9 thou/uL (4.8-10.8)
[2019-06-08 20:37] LABS: ALT (SGPT) 30 U/L (8-55); AST (SGOT) 18 U/L (5-34); Albumin 4.4 g/dL (3.5-5.0); Alkaline Phosphatase 94 U/L (40-100); Anion Gap 19 mmol/L (10-20); BUN (Urea Nitrogen) 9 mg/dL (7.0-18.7); Bilirubin, Total 0.1 mg/dL (0.2-1.2); Calc. Creatinine Clearance 0 mL/min (70-130); Calcium 9.7 mg/dL (7.8-10.44); Carbon Dioxide 23 mmol/L (22-29); Chloride 102 mmol/L (98-107); Estimated GFR-MDRD 82; Globulin 3.4 g/dL (2.4-3.5); Glucose 118 mg/dL (70-105); Lipase 16 U/L (8-78); Potassium 3.8 mmol/L (3.5-5.1); Protein, Total 7.8 g/dL (6.0-8.3); Sodium 140 mmol/L (136-145)
[2019-06-08 20:49] LABS: Bilirubin Negative (Negative); Blood, Urine Trace (Negative); Clarity Clear (Clear); Glucose, Urine (Dipstick) Negative (Negative); Leukocyte Negative (Negative); Nitrite Negative (Negative); Protein, Urine (Dipstick) Negative (Neg-Trace); Urobilinogen 0.2 mg/dL (Less than 2)
[2019-06-08 20:53] LABS: RBC/HPF 0-3 HPF (0-3)
[2019-06-08 20:54] LABS: Bacteria/HPF None Seen HPF (None Seen); Mucous/LPF Rare LPF (<2+); WBC/HPF 0-3 HPF (0-3)
[2019-06-08] MEDS ORDERED: Ondansetron PF 4 MG/2 ML Vial ONE (21:20)
[2019-06-08 21:48] LABS: Pregnancy Test - Urine (BHCG) Negative (Negative)
[2019-06-08 21:49] LABS: Pregu Control Background? CLEAR/WHITE (CLR/WHITE); Pregu Control Bar Appear? YES (CONTROL BAR)
[2019-06-08] MEDS ORDERED: Ketorolac Tromethamine 30 MG/ML VIAL ONE (22:22)
[2019-06-08] MEDS ORDERED: Sucralfate 1 GM TAB ONE (22:59)
--- NOTE | 2019-06-08 23:49 | ULT ---
EXAM: Pelvic ultrasound HISTORY: Left pelvic pain COMPARISON: None TECHNIQUE: Multiple grayscale and color Doppler images were obtained in a transabdominal and transvag inal pelvic ultrasound. Spectral analysis of the Doppler waveforms of the ovaries were performed. FINDINGS: CERVIX: No evidence of nabothian cysts. UTERUS: Normal in size without focal abnormality. ENDOMETRIAL STRIPE: 5 mm. No free fluid is seen in the pelvis. RIGHT OVARY: Normal flow without focal mass. Normal follicles. LEFT OVARY: Normal flow without focal mass. Normal follicles. IMPRESSION: No significant pelvic abnormality
[2019-06-09] MEDS ORDERED: Haloperidol Lactate 5 MG/ML VIAL ONE (00:04)
[2019-06-09] MEDS ORDERED: diphenhydrAMINE 50 MG/ML VIAL ONE (00:04)
[2019-06-09] MEDS ORDERED: Ketorolac Tromethamine 30 MG/ML VIAL ONE (00:32)
== END 2019-06-09 00:46 | disposition home or self-care (01) ==
LOC: SCSER 19:42
DX: R10.32 Left lower quadrant pain (principal); J45.909 Unspecified asthma, uncomplicated; E16.1 Other hypoglycemia; F90.9 Attention-deficit hyperactivity disorder, unspecified type; F41.9 Anxiety disorder, unspecified; F31.9 Bipolar disorder, unspecified; F42.9 Obsessive-compulsive disorder, unspecified; F17.210 Nicotine dependence, cigarettes, uncomplicated; Z79.899 Other long term (current) drug therapy; Z79.891 Long term (current) use of opiate analgesic
CPT/HCPCS: 36415; 76856; 80053; 81003; 81015; 81025; 83690; 85025; J1200; J1630; J1885; J2270; J2405

== ENCOUNTER 2019-06-09 13:10 | Emergency (ER) | payer BC ==
[2019-06-09 14:09] LABS: #Eosinphils 0.3 thou/uL (0.0-0.7); #Lymphocytes 2.9 thou/uL (1.20-3.40); #Monocytes 0.7 thou/uL (0.11-0.59); %Basophils 0.5 % (0.0-1.0); %Eosinophils 3.7 % (0.0-10.0); %Lymphocytes 32.1 % (28.0-48.0); %Monocytes 7.5 % (0.0-4.0); %Neutrophils 56.1 % (31.0-61.0); Hemoglobin 11.9 g/dL (12.0-16.0); Mean Corpuscular HGB CONC 30.8 g/dL (32.0-36.0); Mean Corpuscular Hemoglobin 26.6 pg (25.0-35.0); Mean Corpuscular Volume 86.5 fL (78.0-98.0); Mean Platelet Volume 6.8 fL (7.4-10.4); Platelet Count 301 thou/uL (130-400); RBC Distribution Width 14.9 % (11.5-14.5); Red Blood Cell (RBC) Count 4.47 mill/uL (4.00-5.20); White Blood Cell (WBC) Count 8.9 thou/uL (4.8-10.8)
[2019-06-09 14:16] LABS: PTT 31.4 SEC (22.9-36.1); Prothrombin Time 13.1 SEC (12.0-14.7)
[2019-06-09 14:21] LABS: Anion Gap 16 mmol/L (10-20); BUN (Urea Nitrogen) 11 mg/dL (7.0-18.7); Calc. Creatinine Clearance 0 mL/min (70-130); Calcium 9.3 mg/dL (7.8-10.44); Carbon Dioxide 22 mmol/L (22-29); Chloride 106 mmol/L (98-107); Estimated GFR-MDRD Greater than 90; Glucose 127 mg/dL (70-105); Potassium 4.1 mmol/L (3.5-5.1); Sodium 140 mmol/L (136-145)
[2019-06-09] MEDS ORDERED: Pantoprazole 40 MG VIAL ONE (14:36)
== END 2019-06-09 15:00 | disposition home or self-care (01) ==
LOC: SCSER 13:10
DX: R10.32 Left lower quadrant pain (principal); R11.2 Nausea with vomiting, unspecified
CPT/HCPCS: 36415; 76856; 80048; 80053; 81003; 81015; 81025; 82274; 83690; 85025; 85610; 85730; 86850; 86900; 86901; 96361; 96374; 96375; 96376; C9113; J1200; J1630; J1885; J2270; J2405

== ENCOUNTER 2019-06-12 06:50 | Emergency (ER) | payer BC ==
[2019-06-12 07:19] LABS: Bilirubin Negative (Negative); Blood, Urine Small (Negative); Clarity Cloudy (Clear); Glucose, Urine (Dipstick) Negative (Negative); Leukocyte Negative (Negative); Nitrite Negative (Negative); Protein, Urine (Dipstick) Negative (Neg-Trace); Urobilinogen 0.2 mg/dL (Less than 2)
[2019-06-12 07:22] LABS: Pregnancy Test - Urine (BHCG) Negative (Negative); Pregu Control Background? CLEAR/WHITE (CLR/WHITE); Pregu Control Bar Appear? YES (CONTROL BAR)
[2019-06-12 07:26] LABS: RBC/HPF 0-3 HPF (0-3); WBC/HPF 0-3 HPF (0-3)
[2019-06-12 07:27] LABS: Bacteria/HPF 2+ HPF (None Seen)
[2019-06-12 07:33] LABS: #Basophils 0.1 thou/uL (0.0-0.2); #Eosinphils 0.4 thou/uL (0.0-0.7); #Lymphocytes 3.5 thou/uL (1.20-3.40); #Monocytes 0.8 thou/uL (0.11-0.59); #Neutrophils 6.5 thou/uL (1.40-6.50); %Basophils 1.2 % (0.0-1.0); %Eosinophils 3.6 % (0.0-10.0); %Lymphocytes 30.6 % (28.0-48.0); %Monocytes 7.1 % (0.0-4.0); %Neutrophils 57.6 % (31.0-61.0); Hemoglobin 13.3 g/dL (12.0-16.0); Mean Corpuscular HGB CONC 31.6 g/dL (32.0-36.0); Mean Corpuscular Hemoglobin 27.1 pg (25.0-35.0); Mean Corpuscular Volume 85.5 fL (78.0-98.0); Mean Platelet Volume 6.7 fL (7.4-10.4); Platelet Count 344 thou/uL (130-400); RBC Distribution Width 14.6 % (11.5-14.5); Red Blood Cell (RBC) Count 4.92 mill/uL (4.00-5.20); White Blood Cell (WBC) Count 11.3 thou/uL (4.8-10.8)
[2019-06-12 07:49] LABS: ALT (SGPT) 30 U/L (8-55); AST (SGOT) 17 U/L (5-34); Albumin 4.3 g/dL (3.5-5.0); Alkaline Phosphatase 111 U/L (40-100); Anion Gap 17 mmol/L (10-20); BUN (Urea Nitrogen) 15 mg/dL (7.0-18.7); Bilirubin, Total 0.2 mg/dL (0.2-1.2); Calc. Creatinine Clearance 0 mL/min (70-130); Calcium 10.4 mg/dL (7.8-10.44); Carbon Dioxide 22 mmol/L (22-29); Chloride 103 mmol/L (98-107); Estimated GFR-MDRD 90; Globulin 3.5 g/dL (2.4-3.5); Glucose 99 mg/dL (70-105); Lipase 20 U/L (8-78); Protein, Total 7.8 g/dL (6.0-8.3); Sodium 138 mmol/L (136-145)
== END 2019-06-12 09:14 | disposition home or self-care (01) ==
LOC: SCSER 06:50
DX: R19.7 Diarrhea, unspecified (principal); R10.9 Unspecified abdominal pain; R10.817 Generalized abdominal tenderness
CPT/HCPCS: 80053; 81003; 81015; 81025; 83605; 83690; 85025; 96360; 96361; 96372; J0500

== ENCOUNTER 2019-08-19 05:45 | Day surgery (SDC) | payer BC ==
[2019-08-18 09:03] VITALS: BMI 55.7
[2019-08-19 07:30] LABS: BHCG - Serum Negative (NEGATIVE); Pregs Control Background? CLEAR/WHITE (CLR/WHITE); Pregs Control Bar Appear? YES (CONTROL BAR)
--- NOTE | 2019-08-19 08:44 | OP ---
DATE OF PROCEDURE: 08/19/2019 [employer] OPER[employer] SURGEON: None. PROCEDURES PERFORMED: Colonoscopy with biopsies. INDICATIONS: 1. Chronic diarrhea. 2. Left lower quadrant pain. 3. Rule out inflammatory bowel disease. MEDICATIONS: See Anesthesia record. FINDINGS: After discussion of the risks, benefits, and alternatives of the procedure, informed consent was obtained and witnessed. Pre-endoscopic cardiopulmonary examination was satisfactory. Time-out was performed before sedation was achieved. Sedation was achieved with Anesthesia assistance in the endoscopy unit. Digital rectal exam was performed, which was unremarkable. A Pentax adult colonoscope was inserted into the anus and passed forward to the cecum in the usual fashion. The cecal base was identified by the appendiceal orifice as well as the ileocecal valve. The terminal ileum was intubated and the ileal mucosa appeared normal. The colonoscope was then slowly withdrawn in a gradual and circumferential manner with careful examination of the entire colonic mucosa. The quality of the prep was good. The colonic mucosa appeared normal throughout. There was no evidence of any inflammation. No polyps or mass lesions. I did obtain random biopsies from the colonic mucosa in the right colon and left colon. Retroflexion in the rectum demonstrated only very small internal hemorrhoids. The colonoscope was completely withdrawn and the patient allowed to recover. The patient tolerated the procedure well. There were no immediate postprocedure complications. IMPRESSION: 1. Small internal hemorrhoids. 2. Otherwise normal colonoscopy to the terminal ileum, with random colon biopsies obtained. RECOMMENDATION: 1. Follow up pathology on the random colon biopsies. 2. Trial of dicyclomine 10 mg t.i.d. p.r.n. 3. Follow up in GI Clinic in 1 month. Job ID: [id number]
[2019-08-19] MEDS ORDERED: PHENYLEPHRINE-NS 100 MCG/ML 10 ML SYRINGE ONE (10:36)
[2019-08-19] MEDS ORDERED: PROPOFOL 200 MG/20 ML VIAL ONE (10:36)
[2019-08-19] MEDS ORDERED: Lidocaine 1% PF 5 ML VIAL ONE (10:36)
== END 2019-08-19 08:50 | disposition home or self-care (01) ==
LOC: SDC 05:45
PROVIDERS: ATTEND Internal Medicine
PROC: 0DBE8ZX Excision of Large Intestine, Via Natural or Artificial Opening Endoscopic, Diagnostic (ICD-10-PCS; principal; 2019-08-19)
DX: K64.8 Other hemorrhoids (principal); K52.9 Noninfective gastroenteritis and colitis, unspecified; K21.9 Gastro-esophageal reflux disease without esophagitis; F41.9 Anxiety disorder, unspecified; F32.9 Major depressive disorder, single episode, unspecified; E66.9 Obesity, unspecified; Z68.43 Body mass index [BMI] 50.0-59.9, adult; Z79.899 Other long term (current) drug therapy; Z88.5 Allergy status to narcotic agent
CPT/HCPCS: 84703; 88305; J2001; J2704

== ENCOUNTER 2019-10-25 20:17 | Emergency (ER) | payer BC ==
[2019-10-25] MEDS ORDERED: Ondansetron PF 4 MG/2 ML Vial ONE (21:09)
[2019-10-25 21:18] LABS: #Basophils 0.1 thou/uL (0.0-0.2); #Eosinphils 0.4 thou/uL (0.0-0.7); #Lymphocytes 3.8 thou/uL (1.20-3.40); #Monocytes 0.9 thou/uL (0.11-0.59); #Neutrophils 6.1 thou/uL (1.40-6.50); %Eosinophils 3.5 % (0.0-10.0); %Lymphocytes 33.6 % (21.0-51.0); %Monocytes 8.3 % (0.0-10.0); %Neutrophils 53.7 % (42.0-75.0); Hemoglobin 13.7 g/dL (12.0-16.0); Mean Corpuscular HGB CONC 34.7 g/dL (32.0-36.0); Mean Corpuscular Volume 83.6 fL (78.0-98.0); Platelet Count 402 thou/uL (130-400); RBC Distribution Width 14.2 % (11.5-14.5); Red Blood Cell (RBC) Count 4.71 mill/uL (4.20-5.40); White Blood Cell (WBC) Count 11.3 thou/uL (4.8-10.8)
[2019-10-25 21:24] LABS: BHCG - Serum Negative (NEGATIVE); Pregs Control Background? CLEAR/WHITE (CLR/WHITE); Pregs Control Bar Appear? YES (CONTROL BAR)
[2019-10-25 21:32] LABS: ALT (SGPT) 26 U/L (8-55); AST (SGOT) 17 U/L (5-34); Albumin 4.5 g/dL (3.5-5.0); Alkaline Phosphatase 118 U/L (40-110); Anion Gap 14 mmol/L (10-20); BUN (Urea Nitrogen) 12 mg/dL (7.0-18.7); Bilirubin, Total 0.2 mg/dL (0.2-1.2); Calc. Creatinine Clearance 0 mL/min (70-130); Calcium 9.5 mg/dL (7.8-10.44); Carbon Dioxide 26 mmol/L (22-29); Chloride 100 mmol/L (98-107); Estimated GFR-MDRD 87; Globulin 3.6 g/dL (2.4-3.5); Glucose 119 mg/dL (70-105); Potassium 3.9 mmol/L (3.5-5.1); Protein, Total 8.1 g/dL (6.0-8.3); Sodium 136 mmol/L (136-145)
--- NOTE | 2019-10-25 21:49 | CT ---
CT OF THE ABDOMEN AND PELVIS WITHOUT IV CONTRAST INDICATION: 19-year-old female with left low back pain COMPARISON: CT abdomen pelvis without contrast dated February 14, 2019 FINDINGS: The lack of IV contrast limits evaluation of the solid organs of the abdomen and pelvis. ABDOMEN: Lung bases: There is a small sub-4 mm pulmonary nodule within the right lower lobe Liver: No focal lesion. Gallbladder: Contracted Pancreas: Normal. Adrenal glands: Normal. Spleen: Normal. Kidneys and ureters: Tiny bilateral nonobstructing renal calculi are stable. No definite ureteral arlette culus or hydronephrosis is seen. Vasculature: Normal. Lymph nodes:No lymphadenopathy. Free fluid in abdomen:No free fluid is evident. PELVIS: Small and large bowel: Normal Appendix:Normal Bladder: Normal. Rectal and perirectal soft tissues:Normal. Reproductive structures: Normal. Free fluid in pelvis: No free fluid is evident. Lymphadenopathy pelvis: No lymphadenopathy is evident. Osseous structures: No acute osseous abnormality. No destructive osteolytic or osteoblastic lesion i s identified. Soft tissues:Normal. IMPRESSION: 1. Stable tiny bilateral nonobstructing renal calculi. No ureteral calculus or hydronephrosis demonst rated.
[2019-10-25] MEDS ORDERED: cefTRIAXone\\ROCEPHIN 1 GM VIAL ONE (22:08)
[2019-10-25] MEDS ORDERED: Ketorolac Tromethamine 30 MG/ML VIAL ONE (22:08)
[2019-10-25 22:18] LABS: Bilirubin Negative (Negative); Blood, Urine Trace (Negative); Clarity Clear (Clear); Glucose, Urine (Dipstick) Normal (Negative); Leukocyte 25 Leu/uL (Negative); Nitrite Negative (Negative); Protein, Urine (Dipstick) 10 mg/dL (Neg-Trace); Urobilinogen Normal mg/dL (Less than 2)
[2019-10-25 22:19] LABS: Pregnancy Test - Urine (BHCG) Negative (Negative); Pregu Control Background? CLEAR/WHITE (CLR/WHITE); Pregu Control Bar Appear? YES (CONTROL BAR); Specific Gravity 1.027 (1.002-1.036)
[2019-10-25 22:24] LABS: Bacteria/HPF 2+ HPF (None Seen)
== END 2019-10-25 22:45 | disposition home or self-care (01) ==
LOC: ERS 20:17
DX: N10 Acute pyelonephritis (principal); F41.9 Anxiety disorder, unspecified; F31.9 Bipolar disorder, unspecified; F42.9 Obsessive-compulsive disorder, unspecified; F17.210 Nicotine dependence, cigarettes, uncomplicated; Z79.899 Other long term (current) drug therapy
CPT/HCPCS: 74176; 80053; 81003; 81015; 81025; 84703; 85025; 87086; 96361; 96365; 96375; J0696; J1885; J2405

== ENCOUNTER 2020-02-10 15:30 | Outpatient (CLI) | payer BC | END 2020-02-10 15:31 | disposition home or self-care (01) | LOC: DTY/OP 15:30 | PROVIDERS: ATTEND Surgery | DX: E66.01 Morbid (severe) obesity due to excess calories (principal) | CPT/HCPCS: 97802 ==

== ENCOUNTER 2020-03-10 06:16 | Outpatient (CLI) | payer BC, OTHER ==
[2020-03-11 14:47] LABS: SARS-CoV-2 MS2 Positive; SARS-CoV-2 N Gene Negative; SARS-CoV-2 S Gene Negative; SARS-CoV-2 orf1ab Negative
== END 2020-03-10 06:17 | disposition home or self-care (01) ==
LOC: LABBT 06:16
PROVIDERS: ATTEND Internal Medicine
DX: Z01.812 Encounter for preprocedural laboratory examination (principal); Z11.59 Encounter for screening for other viral diseases; K21.9 Gastro-esophageal reflux disease without esophagitis
CPT/HCPCS: 87635; U0003

== ENCOUNTER 2020-03-11 14:22 | Emergency (ER) | payer BC ==
[2020-03-11] MEDS ORDERED: Mag-Al 1200 mg/1200 mg/30 ML UDCUP ONE (14:47)
[2020-03-11] MEDS ORDERED: Famotidine 20 MG TAB ONE (14:47)
[2020-03-11] MEDS ORDERED: Lidocaine Viscous Sol 2% 15 ml UD Cup ONE (14:47)
== END 2020-03-11 15:35 | disposition home or self-care (01) ==
LOC: ERS 14:22
DX: K21.9 Gastro-esophageal reflux disease without esophagitis (principal); F41.9 Anxiety disorder, unspecified; E78.5 Hyperlipidemia, unspecified; F17.200 Nicotine dependence, unspecified, uncomplicated; Z79.899 Other long term (current) drug therapy
CPT/HCPCS: 99284

== ENCOUNTER 2020-03-15 09:00 | Day surgery (SDC) | payer BC ==
[2020-03-10 12:16] VITALS: BMI 58.0
[2020-03-15] MEDS ORDERED: PROPOFOL 200 MG/20 ML VIAL ONE (09:40)
[2020-03-15] MEDS ORDERED: Lidocaine 1% PF 5 ML VIAL ONE (09:40)
--- NOTE | 2020-03-15 11:41 | OP ---
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 PROCEDURE PERFORMED: Esophagogastroduodenoscopy, diagnostic. INDICATIONS: 1. Gastroesophageal reflux, with worsening symptoms despite Prevacid 30 mg daily. 2. Preoperative assessment, prior to planned gastric bypass surgery. MEDICATIONS: See Anesthesia record. FINDINGS: After discussion of the risks, benefits, and alternatives of the procedure, informed consent was obtained and witnessed. Pre-endoscopic cardiopulmonary examination was satisfactory. Time-out was performed before sedation was achieved. Sedation was achieved with Anesthesia assistance in the endoscopy unit. A Pentax adult upper endoscope was placed into the oropharynx and passed through the cricopharyngeus under direct visualization. The proximal and mid esophageal mucosa appeared normal. In the very distal esophagus and at the Z-line, which is at 41 cm from the incisors, there was some mild inflammation characterized by friability and shallow erosions. This was LA grade A in severity, mild. The endoscope was advanced beyond the Z-line and into the stomach. Forward and retroflexed views of the entire gastric mucosa were obtained. The gastric mucosa appeared normal throughout. The endoscope was advanced through the pylorus and into the first and second portions of the duodenum, which also appeared normal. The upper endoscope was completely withdrawn and the patient allowed to recover. The patient tolerated the procedure well. There were no immediate postprocedure complications. IMPRESSION: 1. Mild LA grade A distal esophagitis. 2. Otherwise, normal esophagogastroduodenoscopy. RECOMMENDATIONS: 1. We will increase Prevacid to 30 mg twice daily dosing. 2. Proceed with bariatric surgery workup as already planned. 3. Follow up in GI clinic in 2 months. Job ID: [id number]
== END 2020-03-15 12:25 | disposition home or self-care (01) ==
LOC: SDC 09:00
PROVIDERS: ATTEND Internal Medicine
PROC: 0DJ08ZZ Inspection of Upper Intestinal Tract, Via Natural or Artificial Opening Endoscopic (ICD-10-PCS; principal; 2020-03-15)
DX: K21.9 Gastro-esophageal reflux disease without esophagitis (principal); F41.9 Anxiety disorder, unspecified; F32.9 Major depressive disorder, single episode, unspecified; E78.00 Pure hypercholesterolemia, unspecified; K58.9 Irritable bowel syndrome, unspecified; G47.30 Sleep apnea, unspecified; Z79.899 Other long term (current) drug therapy
CPT/HCPCS: J2704

== ENCOUNTER 2020-04-20 14:21 | Emergency (ER) | payer BC ==
[~2020-04-20 14:21] MED LIST changes: -Iopamidol 370 76% 100 ML VIAL ONE; +Iopamidol 370 76% 50 ML VIAL FS ONE; +Iopamidol-370 76% 500 ML 1 ML ONE
[2020-04-20 15:14] LABS: #Basophils 0.1 thou/uL (0.0-0.2); #Eosinphils 0.3 thou/uL (0.0-0.7); #Lymphocytes 2.3 thou/uL (1.20-3.40); #Monocytes 0.5 thou/uL (0.11-0.59); #Neutrophils 3.6 thou/uL (1.40-6.50); %Basophils 0.7 % (0.0-1.0); %Eosinophils 5.1 % (0.0-10.0); %Lymphocytes 34.5 % (21.0-51.0); %Monocytes 6.9 % (0.0-10.0); %Neutrophils 52.8 % (42.0-75.0); Hemoglobin 12.5 g/dL (12.0-16.0); Mean Corpuscular HGB CONC 33.1 g/dL (32.0-36.0); Mean Corpuscular Hemoglobin 28.4 pg (27.0-31.0); Mean Corpuscular Volume 85.8 fL (78.0-98.0); Mean Platelet Volume 6.8 fL (7.4-10.4); Platelet Count 284 thou/uL (130-400); RBC Distribution Width 13.4 % (11.5-14.5); White Blood Cell (WBC) Count 6.8 thou/uL (4.8-10.8)
[2020-04-20 15:35] LABS: BHCG - Serum Negative (NEGATIVE); Pregs Control Background? CLEAR/WHITE (CLR/WHITE); Pregs Control Bar Appear? YES (CONTROL BAR)
[2020-04-20 15:36] LABS: ALT (SGPT) 54 U/L (8-55); AST (SGOT) 33 U/L (5-34); Albumin 4.2 g/dL (3.5-5.0); Alkaline Phosphatase 75 U/L (40-110); Anion Gap 16 mmol/L (10-20); BUN (Urea Nitrogen) Less than 4 mg/dL (7.0-18.7); Bilirubin, Total 0.3 mg/dL (0.2-1.2); Calc. Creatinine Clearance 0 mL/min (70-130); Calcium 9.3 mg/dL (7.8-10.44); Carbon Dioxide 24 mmol/L (22-29); Chloride 104 mmol/L (98-107); Estimated GFR-MDRD Greater than 90; Globulin 2.6 g/dL (2.4-3.5); Glucose 80 mg/dL (70-105); Lipase 20 U/L (8-78); Potassium 3.7 mmol/L (3.5-5.1); Protein, Total 6.8 g/dL (6.0-8.3); Sodium 140 mmol/L (136-145)
--- NOTE | 2020-04-20 16:21 | CT ---
EXAM: ABDOMEN AND PELVIC CT SCAN WITH IV CONTRAST: 04/20/20 HISTORY: Epigastric p and pain when she swallows. Approximately two weeks status post gastric bypass. FINDINGS: 0.5 cm diameter pleural based nodule along the minor fissure not seen previously but the prior scans did not extend up this far towards the head. Liver, gallbladder, pancreas, spleen, adrenal glands and common bile duct are unremarkable. There are some fat stranding changes most focally prominent in th e left upper anterior abdomen evidence for recent prior surgery. There is some minimal nonspecific fa t stranding around the post gastric bypass surgery site. No evidence for contrast extravasation. No e vidence for a leak of contrast. No evidence for bowel obstruction. No free intraperitoneal fluid with in the abdomen or pelvis. Normal appearing appendix. Previously noted left renal calculus is not defi nitely demonstrated on this study. IMPRESSION: Recent post gastric bypass surgical changes without evidence for abnormal fluid collections, or leak, or extraluminal gas or other significant postoperative complication. 0.5 cm circumscribed pleural based nodule along the right minor fissure. No evidence for esophageal d ilatation or wall thickening. POS: OFF
== END 2020-04-20 17:25 | disposition home or self-care (01) ==
LOC: ERS 14:21
DX: R10.13 Epigastric pain (principal); E66.9 Obesity, unspecified; E78.5 Hyperlipidemia, unspecified; E78.00 Pure hypercholesterolemia, unspecified; F42.9 Obsessive-compulsive disorder, unspecified; F31.9 Bipolar disorder, unspecified; F41.9 Anxiety disorder, unspecified; F17.200 Nicotine dependence, unspecified, uncomplicated; Z79.1 Long term (current) use of non-steroidal anti-inflammatories (NSAID); Z79.84 Long term (current) use of oral hypoglycemic drugs; Z79.899 Other long term (current) drug therapy
CPT/HCPCS: 36415; 74177; 80053; 83690; 84703; 85025; 96360; Q9967

== ENCOUNTER 2021-05-07 16:36 | Emergency (ER) | payer BC ==
[2021-05-07 18:41] LABS: #Eosinphils 0.3 thou/uL (0.0-0.7); #Lymphocytes 1.7 thou/uL (1.20-3.40); #Monocytes 0.7 thou/uL (0.11-0.59); #Neutrophils 3.9 thou/uL (1.40-6.50); %Basophils 0.5 % (0.0-1.0); %Eosinophils 4.3 % (0.0-10.0); %Lymphocytes 25.5 % (21.0-51.0); %Monocytes 10.1 % (0.0-10.0); %Neutrophils 59.7 % (42.0-75.0); Hemoglobin 12.9 g/dL (12.0-16.0); Mean Corpuscular HGB CONC 32.1 g/dL (32.0-36.0); Mean Corpuscular Volume 84.3 fL (78.0-98.0); Mean Platelet Volume 7.1 fL (7.4-10.4); Platelet Count 291 thou/uL (130-400); RBC Distribution Width 13.1 % (11.5-14.5); Red Blood Cell (RBC) Count 4.77 mill/uL (4.20-5.40); White Blood Cell (WBC) Count 6.6 thou/uL (4.8-10.8)
[2021-05-07] MEDS ORDERED: Ondansetron PF 4 MG/2 ML Vial ONE (19:19)
[2021-05-07 19:31] LABS: Bilirubin Negative (Negative); Blood, Urine Negative (Negative); Clarity Clear (Clear); Glucose, Urine (Dipstick) Normal (Negative); Ketone, Urine Trace mg/dL (Negative); Leukocyte Negative Leu/uL (Negative); Nitrite Negative (Negative); Protein, Urine (Dipstick) 10 mg/dL (Neg-Trace); Specific Gravity, Urine 1.025 (1.002-1.036); Urobilinogen Normal mg/dL (Less than 2); pH, Urine 6.5 (5.0-9.0)
[2021-05-07] MEDS ORDERED: Morphine 4 MG/ML VIAL ONE ×2 (20:09→21:19)
[2021-05-07 20:30] LABS: ALT (SGPT) 17 U/L (8-55); AST (SGOT) 12 U/L (5-34); Alkaline Phosphatase 88 U/L (40-110); Anion Gap 16 mmol/L (10-20); BUN (Urea Nitrogen) 5 mg/dL (7.0-18.7); Bilirubin, Total 0.2 mg/dL (0.2-1.2); Calc. Creatinine Clearance 0 mL/min (70-130); Calcium 9.2 mg/dL (7.8-10.44); Carbon Dioxide 19 mmol/L (22-29); Chloride 107 mmol/L (98-107); Globulin 2.9 g/dL (2.4-3.5); Glucose 79 mg/dL (70-105); Potassium 3.8 mmol/L (3.5-5.1); Protein, Total 6.9 g/dL (6.0-8.3); Sodium 138 mmol/L (136-145)
== END 2021-05-07 22:21 | disposition home or self-care (01) ==
LOC: ERS 16:36
DX: R10.31 Right lower quadrant pain (principal); R10.32 Left lower quadrant pain; Z79.899 Other long term (current) drug therapy; Z79.891 Long term (current) use of opiate analgesic; E78.5 Hyperlipidemia, unspecified; E78.00 Pure hypercholesterolemia, unspecified; E66.9 Obesity, unspecified; Z87.891 Personal history of nicotine dependence
CPT/HCPCS: 36415; 74181; 80053; 81003; 84702; 85025; 96374; 96375; J2270; J2405